=== PATIENT | female | born 1930 | race Caucasian/White ===

== ENCOUNTER 2017-01-01 16:02 | Observation (INO) | payer MEDICARE ==
[2017-01-01 16:15] LABS: Lactic Acid 1.2 (0.4-2.0); VBG BASE EXCESS 4.3 (-2.0-2.0); VBG CARBOXYHEMOGLOBIN 1.9 % T HGB (0.0-6.9); VBG HCO3- 30.3 meq/L (22-28); VBG HEMOGLOBIN 12.4; VBG O2 SATURATION 54.1 (95-100); VBG POTASSIUM 4.3 (3.5-5.1); VBG pH 7.39 (7.32-7.42)
[2017-01-01 16:20] LABS: BASOPHIL % 0.3 % (0.0-0.4); Eosinophil % 0.8 % (0.00-5.0); Granulocytes % 69.3 % (36.0-66.0); Lymphocytes % 21.7 % (24.0-44.0); Mean Cell Volume 86.7 fl (78-100); Mean Corpuscular Hemoglobin 28.8 pg (26-32); Mean Platelet Volume 9.7 fl (6-9.5); Monocytes % 7.9 % (0.0-12.0); Platelet Count 338 K/mm3 (150-450); Red Cell Distribution Width 14.2 % (11.5-14.0); White Blood Count 11.9 K/mm3 (4.0-10.5)
--- NOTE | 2017-01-01 16:33 | XRAY ---
Indication: Short of breath. Comparison: April 15, 2015. Portable chest again hyperinflated with cardiomegaly. There is slight increasing vascular prominence with new interstitial edema and bibasilar effusions favoring cardiac decompensation. There is again note of previous CABG surgery and mitral valve calcifications. Bony thorax intact again with osteopenia and degenerative changes. Impression: Cardiomegaly with new vascular prominence, interstitial edema, and bibasilar effusions favoring cardiac decompensation. Superimposed pneumonia not completely excluded.
[2017-01-01] MEDS ORDERED: Lasix 40 MG/4 ML IV ONE (16:34)
[2017-01-01] MEDS ORDERED: Lasix 40 MG/4 ML ONE (16:40)
--- NOTE | 2017-01-01 16:42 | ERPHSYRPT ---
- History of Present Illness Time Seen by Provider: 01/01/17 16:04 Source: patient, EMS (gave neb, oxygen, NTG) Patient Subjective Stated Complaint: pt arrived per ambulance from home for sob for a couple days worse today, no fever, nonproductive cough, Triage Nursing Assessment: pt alert and oriented, skin w/d pale,sob with conversation, o2 at 2 l nc applied, no edema noted, Physician History: CC: short of air Hx: 86 y/o patient of Dr Islas/Bryson. She has hx of heart disease. She has increasing dyspnea today. Some LAMBERT. No chest pain. Chronic cough. EMS was called for worsened and she had some resp distress on their arrival. She had elevated BP. O2 sat in mid 80s on RA. She improved with oxygen, neb, and NTG. Severity of Dyspnea-Max: severe Severity of Dyspnea-Current: moderate Allergies/Adverse Reactions: Sulfa (Sulfonamide Antibiotics) Allergy (Verified 01/01/17 16:13) Home Medications: Aspirin 325 mg PO BID 04/15/15 [History] Diazepam 10 mg PO QHS 04/15/15 [History] Losartan/Hydrochlorothiazide [Losartan-Hctz 100-12.5 mg Tab] 1 tab PO DAILY [History] Metoprolol Succinate 50 mg [Toprol Xl 50 MG] 50 mg PO BID 04/15/15 [ History] Sandy-3 Fatty Acids [Fish Oil] 1,200 mg PO DAILY 04/15/15 [History] Hydrochlorothiazide 12.5 mg DAILY 01/01/17 [History] Hx Tetanus, Diphtheria Vaccination/Date Given: No Hx Influenza Vaccination/Date Given: Yes Hx Pneumococcal Vaccination/Date Given: Yes Immunizations Up to Date: Yes - Review of Systems Constitutional: Fatigue, Malaise, Weakness, No Fever, No Chills Eyes: No Symptoms Ears, Nose, & Throat: No Symptoms Respiratory: Cough (chronic), Dyspnea, Dyspnea on Exertion (LAMBERT) Cardiac: Edema, No Chest Pain Abdominal/Gastrointestinal: No Nausea, No Vomiting All Other Systems: Reviewed and Negative - Past Medical History Pertinent Past Medical History: Yes Cardiac History: Congenital Heart Disease, Congestive Heart Failure, High Cholesterol, Hypertension, Other Respiratory History: CHF - Past Surgical History Past Surgical History: Yes Female Surgical History: Lumpectomy - Social History Smoking Status: Never smoker Exposure to second hand smoke: Yes Drug Use: none Patient Lives Alone: No - Female History Hx Last Menstrual Period: post - Nursing Vital Signs Nursing Vital Signs: Initial Vital Signs Temperature Source Oral Pulse Rate 99 Respiratory Rate 26 Blood Pressure [] 159/85 Pain Intensity 0 - Physical Exam General Appearance: alert Eye Exam: PERRL/EOMI Neck Exam: normal inspection, non-tender, supple Respiratory Exam: crackles/rales (bilateral) Cardiovascular/Chest Exam: regular rate/rhythm, murmur Abdominal/Gastrointestinal Exam: soft, No tenderness, No distention, No mass, No guarding Extremity Exam: non-tender, no calf tenderness, pedal edema Neurologic Exam: alert, oriented x 3, cooperative, sensation nml, No motor deficits Skin Exam: warm, dry, pale, No rash SpO2 Interpretation: hypoxic SpO2: 88 Oxygen Delivery: Room Air - Course Nursing assessment & vital signs reviewed: Yes EKG Interpreted by Me: RATE (74), Sinus Rhythm, NORMAL AXIS, NORMAL INTERVALS ( QTc 424), Non-specific ST Changes (LVH) - Radiology Exams cxr X-ray Interpretation: Teleradiologist Report (CM, new vascular prominence, interstitial edema, and bibasilar effusions fovring cardiac decompensation.) Ordered Tests: Active Orders 24 hr Category Date Time Status Financial Coach STAT Care 01/01/17 16:05 Active EKG-ER Only STAT Care 01/01/17 16:05 Active IV Insertion STAT Care 01/01/17 16:05 Active Oxygen-ED Only NASAL CANNULA 2 lpm Care 01/01/17 16:05 Active CHEST 1 VIEW (PORTABLE) Stat Exams 01/01/17 16:05 Completed CBC W DIFF Stat Lab 01/01/17 16:18 Completed CMP Stat Lab 01/01/17 16:18 Completed Lactic Acid Urgent Lab 01/01/17 16:13 Completed NT PRO BNP Stat Lab 01/01/17 16:18 Completed TROPONIN Q3H Lab 01/01/17 17:00 Ordered TROPONIN Q3H Lab 01/01/17 20:00 Ordered TROPONIN Q3H Lab 01/01/17 23:00 Ordered TROPONIN Q3H Lab 01/02/17 02:00 Ordered TROPONIN Q3H Lab 01/02/17 05:00 Ordered VENOUS BLOOD GAS Urgent Lab 01/01/17 16:13 Completed Medication Summary Discontinued Medications Generic Name Dose Route Start Last Admin Trade Name Jm PRN Reason Stop Dose Admin Furosemide 40 mg 01/01/17 16:34 01/01/17 16:42 Lasix 40 Mg/4 Ml IV 01/01/17 16:35 40 mg STAT ONE Administration Furosemide Confirm 01/01/17 16:40 Lasix 40 Mg/4 Ml Administered 01/01/17 16:41 Dose 40 mg .ROUTE .STK-MED ONE Lab/Rad Data: Laboratory Result Diagrams 01/01/17 16:18 01/01/17 16:18 Laboratory Results 01/01/17 01/01/17 01/01/17 Range/Units 16:18 16:18 16:13 WBC 11.9 H (4.0-10.5) K/mm3 RBC 4.20 (4.1-5.4) M/mm3 Hgb 12.1 (12.0-16.0) gm/dl Hct 36.4 (35-47) % MCV 86.7 (78-100) fl MCH 28.8 (26-32) pg MCHC 33.2 (32-36) g/dl RDW 14.2 H (11.5-14.0) % Plt Count 338 (150-450) K/mm3 MPV 9.7 H (6-9.5) fl Gran % 69.3 H (36.0-66.0) % Lymphocytes % 21.7 L (24.0-44.0) % Monocytes % 7.9 (0.0-12.0) % Eosinophils % 0.8 (0.00-5.0) % Basophils % 0.3 (0.0-0.4) % Basophils # 0.03 (0-0.4) VBG pH 7.39 (7.32-7.42) VBG pCO2 at Pat Temp 50 (42-55) mm/Hg VBG pO2 at Pat Temp 26 (25-40) mm/Hg VBG HCO3 30.3 H* (22-28) meq/L VBG O2 Sat (Jose) 54.1 L (95-100) VBG Base Excess 4.3 H (-2.0-2.0) VBG Hemoglobin 12.4 VBG Carboxyhemoglobin 1.9 (0.0-6.9) % T HGB POC Potassium 4.3 (3.5-5.1) Sodium 129 L (136-145) mEq/L Potassium 4.0 (3.5-5.1) mEq/L Chloride 92 L (98-107) mEq/L Carbon Dioxide 28.3 (21-32) mEq/L Anion Gap 12.8 (5-15) MEQ/L BUN 15 (9-20) mg/dL Creatinine 0.89 (0.55-1.30) mg/dl Estimated GFR > 60 ML/MIN Glucose 149 H (70-110) MG/DL Lactic Acid 1.2 (0.4-2.0) Calcium 9.6 (8.5-10.1) mg/dL Total Bilirubin 0.4 (0.2-1.0) mg/dL AST 23 (15-37) U/L ALT 19 (12-78) U/L Alkaline Phosphatase 66 (46-116) U/L NT-Pro-B Natriuret Pep 6836 H (0-450) pg/ml Serum Total Protein 7.8 (6.4-8.2) gm/dL Albumin 4.1 (3.4-5.0) g/dL - Progress Progress Note: 01/01/17 17:02 Pt desires no CPR. [facility] paperwork to be signed. Advised hospitalization for CHF. Paged Dr Islas. Troponin pending. 01/01/17 17:06 Pt already took ASA at home today. Spoke to Dr Islas. Will place in Tele observation for lasix, NTG paste, O2. Discussed with : Bailee Will see patient in: hospital (observation) Counseled pt/family regarding: lab results, diagnosis, need for follow-up, rad results - Departure Time of Disposition: 17:06 Departure Disposition: Observation (Tele) Clinical Impression: Shortness of breath, Hyponatremia, Hx of aortic valve insufficiency CHF (congestive heart failure) Qualifiers: Congestive heart failure type: systolic Congestive heart failure chronicity: acute Qualified Code(s): I50.21 - Acute systolic (congestive) heart failure Condition: Fair Critical Care Time: No Referrals: KAYLA ISALS MD [Primary Care Provider] -
[2017-01-01 16:47] LABS: ALBUMIN 4.1 g/dL (3.4-5.0); ALKALINE PHOSPHATASE 66 U/L (46-116); ANION GAP 12.8 MEQ/L (5-15); BILIRUBIN,TOTAL 0.4 mg/dL (0.2-1.0); BLOOD UREA NITROGEN 15 mg/dL (9-20); CHLORIDE 92 mEq/L (98-107); Carbon Dioxide 28.3 mEq/L (21-32); Glucose 149 MG/DL (70-110); SGOT/AST 23 U/L (15-37); SGPT/ALT 19 U/L (12-78); SODIUM 129 mEq/L (136-145); Total Protein 7.8 gm/dL (6.4-8.2)
[2017-01-01] MEDS: Lopressor 50 MG PO SCH (22:28)
[2017-01-01] MEDS: Cozaar 50 MG PO SCH (22:28)
[2017-01-01] MEDS: NITRO-BID 2% UD PACKETS TOP SCH (22:28)
[2017-01-01] MEDS: Ecotrin 325 MG PO SCH (22:42)
[2017-01-01] MEDS: NORVASC 5 MG PO SCH (22:43)
[2017-01-01] MEDS: Valium 5 MG PO SCH (22:43)
[2017-01-02] MEDS: NITRO-BID 2% UD PACKETS TOP SCH ×3 (05:14→23:11)
[2017-01-02 06:00] LABS: Mean Cell Volume 85.9 fl (78-100); Mean Platelet Volume 9.8 fl (6-9.5); Platelet Count 325 K/mm3 (150-450); Red Blood Count 4.03 M/mm3 (4.1-5.4); Red Cell Distribution Width 14.3 % (11.5-14.0); White Blood Count 9.2 K/mm3 (4.0-10.5)
[2017-01-02 06:11] LABS: ANION GAP 11.6 MEQ/L (5-15); Carbon Dioxide 30.8 mEq/L (21-32); Potassium 3.6 mEq/L (3.5-5.1)
[2017-01-02 06:24] LABS: Mean Corpuscular Hemoglobin 28.2 pg (26-32)
[2017-01-02] MEDS ORDERED: PREVNAR 13 SYRINGE IM ONE (10:00)
[2017-01-02] MEDS ORDERED: Ecotrin 325 MG PO SCH (10:00)
[2017-01-02] MEDS: Lopressor 50 MG PO SCH ×2 (11:18→22:41)
[2017-01-02] MEDS: Lasix 40 MG/4 ML IV SCH ×2 (11:19→16:41)
[2017-01-02] MEDS: Cozaar 50 MG PO SCH ×2 (11:19→22:41)
--- NOTE | 2017-01-02 12:24 | PCM.SSS ---
History of Present Illness - Chief Complaint Chief Complaint: shortness of breath and chest pain for 1-2 days History of Present Illness: is a 86 year old female.has hx of heart disease. She has increasing dyspnea today. Some LAMBERT. No chest pain. Chronic cough. EMS was called for worsened and she had some resp distress on their arrival. She had elevated BP. O2 sat in mid 80s on RA. She improved with oxygen, neb, and NTG. - Review of Systems Constitutional: No Fever, No Chills Eyes: No Symptoms Ears, Nose, & Throat: No Symptoms Respiratory: Orthopnea, Short Of Breath, No Cough Cardiac: Chest Pain, No Edema, No Syncope Abdominal/Gastrointestinal: No Abdominal Pain, No Nausea, No Vomiting, No Diarrhea Genitourinary Symptoms: No Dysuria Musculoskeletal: No Back Pain, No Neck Pain Skin: No Rash Neurological: No Dizziness, No Focal Weakness, No Sensory Changes Psychological: No Symptoms Endocrine: No Symptoms Hematologic/Lymphatic: No Symptoms Immunological/Allergic: No Symptoms Medications & Allergies Home Medications: Home Medication List Aspirin 325 mg PO BID 04/15/15 [History Confirmed 01/01/17] Diazepam 10 mg PO QHS 04/15/15 [History Confirmed 01/01/17] Stockett-3 Fatty Acids [Fish Oil] 1,200 mg PO DAILY 04/15/15 [History Confirmed 12/15] Amlodipine Besylate 2.5 mg PO HS 01/01/17 [History Confirmed 01/01/17] Hydrochlorothiazide 12.5 mg DAILY 01/01/17 [History Confirmed 01/01/17] Losartan Potassium 50 mg PO BID 01/01/17 [History Confirmed 01/01/17] Metoprolol Tartrate 100 mg PO BID 01/01/17 [History Confirmed 01/01/17] Allergies/Adverse Reactions: Allergies Allergy/AdvReac Type Severity Reaction Status Date / Time Sulfa (Sulfonamide Allergy Verified 01/01/17 17:58 Antibiotics) - Past Medical History Past Medical History: Yes Neurological History: No Pertinent History ENT History: Cataracts Cardiac History: Congestive Heart Failure, High Cholesterol, Hypertension, Other Respiratory History: CHF Endocrine Medical History: No Pertinent History Musculoskelatal History: Arthritis GI Medical History: No Pertinent History History: No Pertinent History Pyscho-Social History: No Pertinent History Reproductive Disorders: Fibroids Comment: anemia - Female History Hx Last Menstrual Period: post Are you now?: No - Past Surgical History Past Surgical History: Yes Neuro Surgical History: No Pertinent History Cardiac History: CABG Respiratory Surgery: No Pertinent History GI Surgical History: No Pertinent History Genitourinary Surgical Hx: No Pertinent History Musculskeletal Surgical Hx: No Pertinent History Female Surgical History: Hysterectomy, Lumpectomy - Social History Smoking Status: Former smoker Exposure to second hand smoke: Yes Alcohol: None Drug Use: none - Physical Exam Vital Signs: Vital Signs - 24 hr Temp Pulse Resp BP Pulse Ox 01/02/17 07:51 98.1 F 69 18 107/54 94 L 01/02/17 04:00 98.2 F 69 16 109/60 98 01/01/17 23:50 97.9 F 78 17 137/63 97 01/01/17 21:00 86 18 96 01/01/17 20:00 98.0 F 85 18 150/68 98 01/01/17 18:27 97.9 F 100 H 20 181/82 94 L 01/01/17 17:21 87 20 155/83 97 01/01/17 17:07 88 L 01/01/17 16:10 26 H 97 01/01/17 16:03 99 H 26 H 159/85 88 L Oxygen-Last 24 hours O2 Percentage 2 Liters = 28% O2 Percentage 2 Liters = 28% O2 Percentage 2 Liters = 28% O2 Percentage 2 Liters = 28% O2 Percentage 2 Liters = 28% O2 Percentage 2 Liters = 28% O2 Percentage 2 Liters = 28% General Appearance: no apparent distress, alert Neurologic Exam: alert, oriented x 3, cooperative, normal mood/affect, nml cerebellar function, nml station & gait, sensation nml, No motor deficits Eye Exam: PERRL/EOMI, eyes nml inspection Ears, Nose, Throat Exam: normal ENT inspection, TMs normal, pharynx normal, moist mucous membranes Neck Exam: normal inspection, non-tender, supple, full range of motion Respiratory Exam: diminished breath sounds, prolonged expirations, crackles/ rales, rhonchi, wheezing, No respiratory distress Cardiovascular Exam: regular rate/rhythm, normal heart sounds, normal peripheral pulses Gastrointestinal/Abdomen Exam: soft, normal bowel sounds, No tenderness, No mass Back Exam: normal inspection, normal range of motion, No CVA tenderness, No vertebral tenderness Extremity Exam: normal inspection, normal range of motion, pelvis stable Skin Exam: normal color, warm, dry, No rash Lymphatic Exam: No adenopathy Results - Labs Lab/Micro Results: Lab Results-Last 24 Hours 01/01/17 01/01/17 01/02/17 Range/Units 20:10 23:05 02:03 WBC (4.0-10.5) K/mm3 RBC (4.1-5.4) M/mm3 Hgb (12.0-16.0) gm/dl Hct (35-47) % MCV (78-100) fl MCH (26-32) pg MCHC (32-36) g/dl RDW (11.5-14.0) % Plt Count (150-450) K/mm3 MPV (6-9.5) fl Sodium (136-145) mEq/L Potassium (3.5-5.1) mEq/L Chloride (98-107) mEq/L Carbon Dioxide (21-32) mEq/L Anion Gap (5-15) MEQ/L BUN (9-20) mg/dL Creatinine (0.55-1.30) mg/dl Estimated GFR ML/MIN Glucose (70-110) MG/DL Calcium (8.5-10.1) mg/dL Troponin I 0.948 H* 1.109 H* 1.375 H* (0.000-0.056) ng/ml NT-Pro-B Natriuret Pep (0-450) pg/ml 01/02/17 01/02/17 01/02/17 Range/Units 05:25 05:25 05:25 WBC 9.2 (4.0-10.5) K/mm3 RBC 4.03 L (4.1-5.4) M/mm3 Hgb 11.4 L (12.0-16.0) gm/dl Hct 34.6 L (35-47) % MCV 85.9 (78-100) fl MCH 28.2 (26-32) pg MCHC 32.9 (32-36) g/dl RDW 14.3 H (11.5-14.0) % Plt Count 325 (150-450) K/mm3 MPV 9.8 H (6-9.5) fl Sodium 132 L (136-145) mEq/L Potassium 3.6 (3.5-5.1) mEq/L Chloride 93 L (98-107) mEq/L Carbon Dioxide 30.8 (21-32) mEq/L Anion Gap 11.6 (5-15) MEQ/L BUN 17 (9-20) mg/dL Creatinine 1.05 (0.55-1.30) mg/dl Estimated GFR 53 ML/MIN Glucose 128 H (70-110) MG/DL Calcium 9.4 (8.5-10.1) mg/dL Troponin I 0.903 H* (0.000-0.056) ng/ml NT-Pro-B Natriuret Pep 05851 H (0-450) pg/ml - Radiology Impressions Radiology Exams & Impressions: Radiology Procedures Category Date Time Status ECHO W/2D AND DOPPLER [US] Routine Exams 01/02/17 08:00 Taken Assessment/Plan (1) Non-ST elevated myocardial infarction Current Visit: Yes Status: Acute Code(s): I21.4 - NON-ST ELEVATION (NSTEMI) MYOCARDIAL INFARCTION (2) CHF (congestive heart failure) Current Visit: Yes Status: Acute Qualifiers: Congestive heart failure type: systolic Congestive heart failure chronicity : acute Qualified Code(s): I50.21 - Acute systolic (congestive) heart failure Code(s): I50.9 - HEART FAILURE, UNSPECIFIED (3) Hx of aortic valve insufficiency Current Visit: Yes Status: Acute Code(s): Z86.79 - PERSONAL HISTORY OF OTHER DISEASES OF THE CIRCULATORY SYSTEM (4) Shortness of breath Current Visit: Yes Status: Acute Code(s): R06.02 - SHORTNESS OF BREATH (5) Chest pain Current Visit: Yes Status: Acute Qualifiers: Chest pain type: chest pain on breathing Qualified Code(s): R07.1 - Chest pain on breathing Code(s): R07.9 - CHEST PAIN, UNSPECIFIED Hospital Summary - Hospital Course Hospital Course: Chief Complaint Diagnosis shortness of breath and chest pain for 1-2 days Allergies Allergy/AdvReac Type Severity Reaction Status Date / Time Sulfa (Sulfonamide Allergy Verified 01/01/17 17:58 Antibiotics) Vital Signs (Last 24 hours) Temp Pulse Resp BP Pulse Ox 01/03/17 03:57 98.2 F 81 25 H 130/62 82 L 01/03/17 00:00 97.7 F 69 19 104/57 97 01/02/17 22:48 75 131/66 01/02/17 19:49 98.1 F 84 20 95/54 94 L 01/02/17 16:00 98.4 F 69 20 110/58 98 01/02/17 12:00 98.3 F 79 20 121/58 96 01/02/17 07:51 98.1 F 69 18 107/54 94 L Home Medications Medication Instructions Recorded Confirmed Last Taken Type Amlodipine Besylate 2.5 mg PO HS 01/01/17 01/01/17 12/31/16 21:00 History Hydrochlorothiazide 12.5 mg DAILY 01/01/17 01/01/17 01/01/17 History Losartan Potassium 50 mg PO BID 01/01/17 01/01/17 01/01/17 09:00 History Metoprolol Tartrate 100 mg PO BID 01/01/17 01/01/17 01/01/17 09:00 History Current Medications Generic Name Dose Route Start Last Admin Trade Name Jm PRN Reason Stop Dose Admin Amlodipine Besylate 2.5 mg 01/01/17 22:00 01/02/17 22:42 Norvasc 5 Mg PO 01/31/17 21:59 2.5 mg HS MARCELLUS Administration Aspirin 325 mg 01/01/17 22:00 01/02/17 22:42 Ecotrin 325 Mg PO 01/31/17 21:59 325 mg BID MARCELLUS Administration Diazepam 10 mg 01/01/17 22:00 01/02/17 22:42 Valium 5 Mg PO 01/31/17 21:59 10 mg QHS MARCELLUS Administration Furosemide 40 mg 01/02/17 10:00 01/02/17 16:41 Lasix 40 Mg/4 Ml IV 02/01/17 09:59 40 mg BID DIURETIC MARCELLUS Administration Losartan Potassium 50 mg 01/01/17 22:00 01/02/17 22:41 Cozaar 50 Mg PO 01/31/17 21:59 50 mg BID MARCELLUS Administration Metoprolol Tartrate 100 mg 01/01/17 22:00 01/02/17 22:41 Lopressor 50 Mg PO 01/31/17 21:59 100 mg BID MARCELLUS Administration Nitroglycerin 0.5 gm 01/01/17 22:00 01/03/17 06:54 Nitro-Bid 2% Ud Packets TOP 01/31/17 21:59 Not Given Q8HT MARCELLUS Discontinued Medications Generic Name Dose Route Start Last Admin Trade Name Jm PRN Reason Stop Dose Admin Aspirin 325 mg 01/02/17 10:00 Ecotrin 325 Mg PO 02/01/17 09:59 QAM MARCELLUS Furosemide 40 mg 01/01/17 16:34 01/01/17 16:42 Lasix 40 Mg/4 Ml IV 01/01/17 16:35 40 mg STAT ONE Administration Furosemide Confirm 01/01/17 16:40 Lasix 40 Mg/4 Ml Administered 01/01/17 16:41 Dose 40 mg .ROUTE .STK-MED ONE Pneumococcal 13-Valent Conj Vacc 0.5 ml 01/02/17 10:00 01/02/17 11:20 Prevnar 13 Syringe IM 01/02/17 10:01 0.5 ml .ONCE ONE Administration Intake & Output (Last 24 hours) 12/31/16 01/01/17 01/02/17 01/03/17 11:59 11:59 11:59 11:59 Intake Total 100 680 Output Total 900 650 Balance -800 30 Weight 64.864 kg Laboratory Results (Last 24 hours) 01/03/17 05:20 NT-Pro-B Natriuret Pep 7560 H Orders (Last 24 hours) Category Date Time Status ECHO W/2D AND DOPPLER [US] Routine Exams 01/02/17 08:00 Taken BNP [NT PRO BNP] Routine Lab 01/03/17 05:20 Completed Aspirin EC 325 mg [Ecotrin 325 MG] Med 01/02/17 10:00 Discontinued 325 mg PO QAM Furosemide 40 mg/4 ml [Lasix 40 MG/4 ML] Med 01/02/17 10:00 Active 40 mg IV BID DIURETIC Pneumoc 13-Elisha Conj-Dip Crm/Pf [Prevnar 13 Syringe] Med 01/02/17 10:00 Discontinued 0.5 ml IM .ONCE ONE - Vitals & Intake/Output Vital Signs: Vital Signs Temperature 98.1 F 01/02/17 07:51 Pulse Rate 69 01/02/17 07:51 Respiratory Rate 18 01/02/17 07:51 Blood Pressure 107/54 01/02/17 07:51 O2 Sat by Pulse Oximetry 94 L 01/02/17 07:51 Oxygen-Last Documented O2 Percentage 2 Liters = 28% Intake & Output: Intake & Output 12/31/16 01/01/17 01/02/17 01/03/17 11:59 11:59 11:59 11:59 Intake Total 100 Output Total 900 Balance -800 Weight 64.864 kg - Lab Result Diagrams: 01/02/17 05:25 01/02/17 05:25 Lab Results-Last 24 Hrs: Lab Results-Last 24 Hours 01/01/17 01/01/17 01/02/17 Range/Units 20:10 23:05 02:03 WBC (4.0-10.5) K/mm3 RBC (4.1-5.4) M/mm3 Hgb (12.0-16.0) gm/dl Hct (35-47) % MCV (78-100) fl MCH (26-32) pg MCHC (32-36) g/dl RDW (11.5-14.0) % Plt Count (150-450) K/mm3 MPV (6-9.5) fl Sodium (136-145) mEq/L Potassium (3.5-5.1) mEq/L Chloride (98-107) mEq/L Carbon Dioxide (21-32) mEq/L Anion Gap (5-15) MEQ/L BUN (9-20) mg/dL Creatinine (0.55-1.30) mg/dl Estimated GFR ML/MIN Glucose (70-110) MG/DL Calcium (8.5-10.1) mg/dL Troponin I 0.948 H* 1.109 H* 1.375 H* (0.000-0.056) ng/ml NT-Pro-B Natriuret Pep (0-450) pg/ml 01/02/17 01/02/17 01/02/17 Range/Units 05:25 05:25 05:25 WBC 9.2 (4.0-10.5) K/mm3 RBC 4.03 L (4.1-5.4) M/mm3 Hgb 11.4 L (12.0-16.0) gm/dl Hct 34.6 L (35-47) % MCV 85.9 (78-100) fl MCH 28.2 (26-32) pg MCHC 32.9 (32-36) g/dl RDW 14.3 H (11.5-14.0) % Plt Count 325 (150-450) K/mm3 MPV 9.8 H (6-9.5) fl Sodium 132 L (136-145) mEq/L Potassium 3.6 (3.5-5.1) mEq/L Chloride 93 L (98-107) mEq/L Carbon Dioxide 30.8 (21-32) mEq/L Anion Gap 11.6 (5-15) MEQ/L BUN 17 (9-20) mg/dL Creatinine 1.05 (0.55-1.30) mg/dl Estimated GFR 53 ML/MIN Glucose 128 H (70-110) MG/DL Calcium 9.4 (8.5-10.1) mg/dL Troponin I 0.903 H* (0.000-0.056) ng/ml NT-Pro-B Natriuret Pep 75516 H (0-450) pg/ml - Radiology Exams Ordered Rad Exams-Entire Visit: Radiology Procedures Category Date Time Status ECHO W/2D AND DOPPLER [US] Routine Exams 01/02/17 08:00 Taken - Discharge Discharge Date: 01/03/17 Disposition: Home, Self-Care Condition: Stable Prescriptions: Continue Diazepam 10 mg PO QHS Stockett-3 Fatty Acids [Fish Oil] 1,200 mg PO DAILY Aspirin 325 mg PO BID Hydrochlorothiazide 12.5 mg DAILY Amlodipine Besylate 2.5 mg PO HS Metoprolol Tartrate 100 mg PO BID Losartan Potassium 50 mg PO BID Follow up with: KAYLA ISLAS MD [Primary Care Provider] - 1 Week Forms: Patient Portal Information
[2017-01-02] MEDS: Ecotrin 325 MG PO SCH ×2 (14:32→22:42)
[2017-01-02] MEDS: Valium 5 MG PO SCH (22:42)
[2017-01-02] MEDS: NORVASC 5 MG PO SCH (22:42)
[2017-01-03] MEDS: NITRO-BID 2% UD PACKETS TOP SCH (06:54)
[2017-01-03 08:00] VITALS: BP 131/60; PULSE 70; O2SAT 94
--- NOTE | 2017-01-07 12:42 | ECHO ---
Transthoracic echocardiographic examination and color Doppler was done on 01/02/2017. INDICATION: Hypertension, hyperlipidemia, shortness of breath. IMPRESSION: 1) MILD LEFT VENTRICULAR HYPOKINESIA. EJECTION FRACTION OF AROUND 40%. 2) AORTIC VALVE SCLEROSIS. 3) MODERATE AORTIC REGURGITATION. 4) MILD TRICUSPID REGURGITATION. RIGHT VENTRICULAR SYSTOLIC PRESSURE OF 27 MM OF MERCURY. 5) MILD MITRAL REGURGITATION. 6) TRACE PULMONIC INSUFFICIENCY. 7) LEFT ATRIAL ENLARGEMENT. 8) LEFT VENTRICULAR HYPERTROPHY. 9) LEFT VENTRICULAR DIASTOLIC DYSFUNCTION. The left ventricle is visualized and demonstrated mild global left ventricular hypokinesia. Ejection fraction around 40%. There is moderate left ventricular hypertrophy. The mitral valve is seen and this opens adequately. There is mild mitral regurgitation. Left atrium is enlarged. Tissue Doppler study of the lateral mitral annulus suggestive of left ventricular diastolic dysfunction. The aortic valve is calcified with some limitation of the opening. There is no significant gradient across the aortic valve. There is moderate aortic regurgitation. Right side chambers are normal. There is mild tricuspid regurgitation. Right ventricular systolic pressure of 27 mm of Mercury. There is also trace pulmonic insufficiency. Suggest additional interrogation of the aortic valve.
== END 2017-01-03 09:00 | disposition home or self-care (01) ==
LOC: ED 16:02 → MED SURG 17:54
PROVIDERS: ADMIT General Practice; ATTEND General Practice
DX: I21.4 Non-ST elevation (NSTEMI) myocardial infarction (principal); I50.21 Acute systolic (congestive) heart failure; I10 Essential (primary) hypertension; M19.90 Unspecified osteoarthritis, unspecified site; E78.00 Pure hypercholesterolemia, unspecified; Z86.79 Personal history of other diseases of the circulatory system; Z95.1 Presence of aortocoronary bypass graft
CPT/HCPCS: 36415; 71010; 80048; 80053; 82805; 83605; 83880; 84484; 85025; 85027; 90670; 93005; 93041; 93268; 93306; 94760; 96374; 99285; G0009; G0378; J1940; A9270-GY

== ENCOUNTER 2017-05-16 08:37 | Inpatient (IN) | payer MEDICARE ==
[2017-05-16] MEDS ORDERED: Hydromorphone 1 mg/ml Ampule IV ONE (08:48)
--- NOTE | 2017-05-16 08:57 | ERPHSYRPT ---
- History of Present Illness Time Seen by Provider: 05/16/17 08:58 Patient Subjective Stated Complaint: shoulder pain and back pain keeps trying to rub her back which causes her shoulders to hurt worse Triage Nursing Assessment: pt alert and oriented x3, left eye swollen underneath , lung sounds clear anterior and posterior throughout, some congestion when she talks noted in back of throat, difficulty clearing secretions pulses equal bialteral radius, handgrips equal bialteral able to lift arms and fully rotate shoulders. skin clean white nad intact bowel sounds present x4. mild edema lower extremities left sild is slightly more swollen than right, pedal pulses present bilaterally. Physician History: shoulder pain and back pain keeps trying to rub her back which causes her shoulders to hurt worse, c/o weakness, shortness of breath Timing/Duration: day(s) Modifying Factors: Improves With: medication Associated Symptoms: weakness Allergies/Adverse Reactions: Sulfa (Sulfonamide Antibiotics) Allergy (Verified 01/01/17 17:58) rash Home Medications: Aspirin 325 mg PO BID 04/15/15 [History] Diazepam 10 mg PO QHS 04/15/15 [History] [place]-3 Fatty Acids [Fish Oil] 1,200 mg PO DAILY 04/15/15 [History] Amlodipine Besylate 2.5 mg PO HS 01/01/17 [History] Hydrochlorothiazide 12.5 mg DAILY 01/01/17 [History] Losartan Potassium 50 mg PO BID 01/01/17 [History] Metoprolol Tartrate 100 mg PO BID 01/01/17 [History] Hx Tetanus, Diphtheria Vaccination/Date Given: Yes Hx Influenza Vaccination/Date Given: No Hx Pneumococcal Vaccination/Date Given: Yes Immunizations Up to Date: Yes - Review of Systems Constitutional: Lethargy, Weakness, No Fever, No Chills Eyes: No Symptoms Ears, Nose, & Throat: No Symptoms Respiratory: Dyspnea, Dyspnea on Exertion (LAMBERT), No Cough, No Wheezing Cardiac: No Chest Pain, No Edema, No Syncope Abdominal/Gastrointestinal: No Abdominal Pain, No Nausea, No Vomiting, No Diarrhea Genitourinary Symptoms: No Dysuria Musculoskeletal: Back Pain (mid thoracic back pain), No Neck Pain Skin: No Rash Neurological: No Dizziness, No Focal Weakness, No Sensory Changes Psychological: No Symptoms Endocrine: No Symptoms All Other Systems: Reviewed and Negative - Past Medical History Pertinent Past Medical History: Yes Neurological History: No Pertinent History ENT History: Cataracts Cardiac History: Congestive Heart Failure, High Cholesterol, Hypertension, Other Respiratory History: CHF Endocrine Medical History: No Pertinent History Musculoskeletal History: Arthritis GI Medical History: No Pertinent History History: No Pertinent History Psycho-Social History: No Pertinent History Female Reproductive Disorders: Fibroids Other Medical History: anemia - Past Surgical History Past Surgical History: Yes Neuro Surgical History: No Pertinent History Cardiac: CABG Respiratory: No Pertinent History Gastrointestinal: No Pertinent History Genitourinary: No Pertinent History Musculoskeletal: No Pertinent History Female Surgical History: Hysterectomy, Lumpectomy - Social History Smoking Status: Never smoker Exposure to second hand smoke: No Drug Use: none Patient Lives Alone: No - Nursing Vital Signs Nursing Vital Signs: Initial Vital Signs Temperature 97.8 F 05/16/17 08:38 Pulse Rate 69 05/16/17 08:38 Respiratory Rate 20 05/16/17 08:38 Blood Pressure 159/81 05/16/17 08:38 O2 Sat by Pulse Oximetry 95 05/16/17 08:38 Pain Scale Pain Intensity 2 - Physical Exam General Appearance: mild distress, alert, lethargy Eye Exam: PERRL/EOMI, eyes nml inspection Ears, Nose, Throat Exam: normal ENT inspection, TMs normal, pharynx normal, moist mucous membranes Neck Exam: normal inspection, non-tender, supple, full range of motion Respiratory Exam: lungs clear, diminished breath sounds, No respiratory distress Cardiovascular Exam: murmur, irregular, capillary refill 2-3 sec, edema Gastrointestinal/Abdomen Exam: soft, normal bowel sounds, No tenderness, No mass Back Exam: normal inspection, normal range of motion, muscle spasm (right upper shoulder), No CVA tenderness, No vertebral tenderness Extremity Exam: normal inspection, normal range of motion, pelvis stable Neurologic Exam: alert, oriented x 3, cooperative, normal mood/affect, nml cerebellar function, nml station & gait, sensation nml, No motor deficits Skin Exam: normal color, warm, dry, No rash Lymphatic Exam: No adenopathy SpO2: 95 Oxygen Delivery: Room Air - Course Nursing assessment & vital signs reviewed: Yes EKG Interpreted by Me: Right [place] Deviation, Non-specific ST Changes Ordered Tests: Active Orders 24 hr Category Date Time Status Book Shelver STAT Care 05/16/17 08:51 Active EKG-ER Only STAT Care 05/16/17 08:48 Active CHEST 2 VIEWS (PA AND LAT) Stat Exams 05/16/17 08:51 Taken CBC W DIFF Stat Lab 05/16/17 09:15 Completed CMP Stat Lab 05/16/17 09:15 Completed Lactic Acid Stat Lab 05/16/17 Completed NT PRO BNP Stat Lab 05/16/17 09:15 Completed TROPONIN Q3H Lab 05/16/17 09:15 Completed TROPONIN Q3H Lab 05/16/17 12:00 Ordered TROPONIN Q3H Lab 05/16/17 15:00 Ordered TROPONIN Q3H Lab 05/16/17 18:00 Ordered TROPONIN Q3H Lab 05/16/17 21:00 Ordered UA W/RFX UR CULTURE Stat Lab 05/16/17 08:50 Ordered Medication Summary Generic Name Dose Route Start Last Admin Trade Name Freq PRN Reason Stop Dose Admin Sodium Chloride 1,000 mls @ 50 mls/hr 05/16/17 09:00 05/16/17 09:09 Sodium Chloride 0.9% 1000 Ml IV 06/15/17 08:59 50 mls/hr .Q20H MARCELLUS Administration Discontinued Medications Generic Name Dose Route Start Last Admin Trade Name Freq PRN Reason Stop Dose Admin Hydromorphone HCl 0.5 mg 05/16/17 08:48 Hydromorphone 1 Mg/Ml Ampule IV 05/16/17 08:49 STAT ONE Lab/Rad Data: Laboratory Result Diagrams 05/16/17 09:15 05/16/17 09:15 Laboratory Results 05/16/17 05/16/17 05/16/17 Range/Units Unknown 09:15 09:15 WBC (4.0-10.5) K/mm3 RBC (4.1-5.4) M/mm3 Hgb (12.0-16.0) gm/dl Hct (35-47) % MCV (78-100) fl MCH (26-32) pg MCHC (32-36) g/dl RDW (11.5-14.0) % Plt Count (150-450) K/mm3 MPV (6-9.5) fl Gran % (36.0-66.0) % Lymphocytes % (24.0-44.0) % Monocytes % (0.0-12.0) % Eosinophils % (0.00-5.0) % Basophils % (0.0-0.4) % Basophils # (0-0.4) Sodium 126 L (136-145) mEq/L Potassium 3.7 (3.5-5.1) mEq/L Chloride 88 L (98-107) mEq/L Carbon Dioxide 28.5 (21-32) mEq/L Anion Gap 13.6 (5-15) MEQ/L BUN 12 (9-20) mg/dL Creatinine 0.87 (0.55-1.30) mg/dl Estimated GFR > 60 ML/MIN Glucose 112 H (70-110) MG/DL Lactic Acid 1.6 (0.4-2.0) Calcium 9.5 (8.5-10.1) mg/dL Total Bilirubin 0.50 (0.2-1.0) mg/dL AST 29 (15-37) U/L ALT 59 (12-78) U/L Alkaline Phosphatase 93 (46-116) U/L Troponin I 0.031 (0.000-0.056) ng/ml NT-Pro-B Natriuret Pep 23102 H (0-450) pg/ml Serum Total Protein 7.0 (6.4-8.2) gm/dL Albumin 4.0 (3.4-5.0) g/dL 17 Range/Units 09:15 WBC 7.1 (4.0-10.5) K/mm3 RBC 4.45 (4.1-5.4) M/mm3 Hgb 12.5 (12.0-16.0) gm/dl Hct 37.2 (35-47) % MCV 83.6 (78-100) fl MCH 28.1 (26-32) pg MCHC 33.6 (32-36) g/dl RDW 15.1 H (11.5-14.0) % Plt Count 281 (150-450) K/mm3 MPV 9.8 H (6-9.5) fl Gran % 60.0 (36.0-66.0) % Lymphocytes % 25.2 (24.0-44.0) % Monocytes % 13.2 H (0.0-12.0) % Eosinophils % 1.3 (0.00-5.0) % Basophils % 0.3 (0.0-0.4) % Basophils # 0.02 (0-0.4) Sodium (136-145) mEq/L Potassium (3.5-5.1) mEq/L Chloride (98-107) mEq/L Carbon Dioxide (21-32) mEq/L Anion Gap (5-15) MEQ/L BUN (9-20) mg/dL Creatinine (0.55-1.30) mg/dl Estimated GFR ML/MIN Glucose (70-110) MG/DL Lactic Acid (0.4-2.0) Calcium (8.5-10.1) mg/dL Total Bilirubin (0.2-1.0) mg/dL AST (15-37) U/L ALT (12-78) U/L Alkaline Phosphatase (46-116) U/L Troponin I (0.000-0.056) ng/ml NT-Pro-B Natriuret Pep (0-450) pg/ml Serum Total Protein (6.4-8.2) gm/dL Albumin (3.4-5.0) g/dL - Progress Progress: unchanged Discussed with : Bailee Will see patient in: hospital (observation) Counseled pt/family regarding: lab results, diagnosis, need for follow-up, rad results - Departure Time of Disposition: 09:58 Departure Disposition: Observation Clinical Impression: Hx of aortic valve insufficiency, Hyponatremia Acute exacerbation of CHF (congestive heart failure) Qualifiers: Congestive heart failure type: combined Qualified Code(s): I50.43 - Acute on chronic combined systolic (congestive) and diastolic (congestive) heart failure Condition: Fair Critical Care Time: Yes Critical Care Time(excluding separately billable procedures): 30-74 minutes Referrals: KAYLA ISLAS MD [Primary Care Provider] - Instructions: Heart Failure
[2017-05-16] MEDS ORDERED: Sodium Chloride 0.9% 1000 ML 1,000 ML ONE (09:00)
[2017-05-16] MEDS ORDERED: Sodium Chloride 0.9% 1000 ML 1,000 ML IV SCH (09:00)
[2017-05-16 09:26] LABS: BASOPHIL % 0.3 % (0.0-0.4); Eosinophil % 1.3 % (0.00-5.0); Lymphocytes % 25.2 % (24.0-44.0); Mean Cell Volume 83.6 fl (78-100); Mean Corpuscular Hemoglobin 28.1 pg (26-32); Mean Platelet Volume 9.8 fl (6-9.5); Monocytes % 13.2 % (0.0-12.0); Platelet Count 281 K/mm3 (150-450); Red Blood Count 4.45 M/mm3 (4.1-5.4); Red Cell Distribution Width 15.1 % (11.5-14.0); White Blood Count 7.1 K/mm3 (4.0-10.5)
[2017-05-16 09:53] LABS: ALKALINE PHOSPHATASE 93 U/L (46-116); ANION GAP 13.6 MEQ/L (5-15); BLOOD UREA NITROGEN 12 mg/dL (9-20); CHLORIDE 88 mEq/L (98-107); Carbon Dioxide 28.5 mEq/L (21-32); Glucose 112 MG/DL (70-110); Potassium 3.7 mEq/L (3.5-5.1); SGOT/AST 29 U/L (15-37); SGPT/ALT 59 U/L (12-78); SODIUM 126 mEq/L (136-145)
[2017-05-16] MEDS ORDERED: Nitrostat 0.4 MG Tablet SL PRN (10:29)
[2017-05-16] MEDS ORDERED: FATTY ACIDS PO SCH (10:29)
[2017-05-16] MEDS ORDERED: OMEGA PO SCH (10:29)
[2017-05-16] MEDS ORDERED: NON-FORMULARY ITEM (Metoprolol Tartrate [Metoprolol Tartrate] 100 MG) PO SCH (10:29)
[2017-05-16] MEDS: hydroDIURIL 25 MG PO SCH (13:15)
[2017-05-16] MEDS: Lopressor 50 MG PO SCH ×2 (13:16→22:47)
[2017-05-16] MEDS: Ecotrin 325 MG PO SCH ×2 (13:17→22:45)
[2017-05-16] MEDS: FISH OIL 1,000 MG CAPSULE PO SCH (13:18)
[2017-05-16] MEDS: Cozaar 50 MG PO SCH ×2 (13:18→22:47)
--- NOTE | 2017-05-16 18:23 | PCM.HP ---
History of Present Illness - Chief Complaint Chief Complaint: shortness of breath and mid back pain for 1 day History of Present Illness: is a 87 year old female came to ER with c/o mid back pain and shortness of breath for 1 day, denies any fever or chills, Pain radiate to right shoulder - Review of Systems Constitutional: No Fever, No Chills Eyes: No Symptoms Ears, Nose, & Throat: No Symptoms Respiratory: Orthopnea, Short Of Breath, No Cough, No Wheezing Cardiac: Chest Pain, Edema, Orthopnea, PND, No Syncope Abdominal/Gastrointestinal: No Abdominal Pain, No Nausea, No Vomiting, No Diarrhea Genitourinary Symptoms: No Dysuria Musculoskeletal: No Back Pain, No Neck Pain Skin: No Rash Neurological: No Dizziness, No Focal Weakness, No Sensory Changes Psychological: No Symptoms Endocrine: No Symptoms Hematologic/Lymphatic: No Symptoms Immunological/Allergic: No Symptoms Medications & Allergies Home Medications: Home Medication List Aspirin 325 mg PO BID 04/15/15 [History Confirmed 05/17/17] Diazepam 10 mg PO QHS 04/15/15 [History Confirmed 05/17/17] [employer]-3 Fatty Acids [Fish Oil] 1,200 mg PO DAILY 04/15/15 [History Confirmed ] Amlodipine Besylate 2.5 mg PO HS 01/01/17 [History Confirmed 05/17/17] Hydrochlorothiazide 12.5 mg DAILY 01/01/17 [History Confirmed 05/17/17] Losartan Potassium 50 mg PO BID 01/01/17 [History Confirmed 05/17/17] Metoprolol Tartrate 100 mg PO BID 01/01/17 [History Confirmed 05/17/17] Nitroglycerin 0.4 mg Tablet [Nitrostat 0.4 MG Tablet] 0.4 mg SL Q5MIN PRN MR X 3 PRN #1 bottle 01/03/17 [Rx Confirmed 05/17/17] Allergies/Adverse Reactions: Allergies Allergy/AdvReac Type Severity Reaction Status Date / Time Sulfa (Sulfonamide Allergy Verified 01/01/17 17:58 Antibiotics) - Past Medical History Past Medical History: Yes Neurological History: No Pertinent History ENT History: Cataracts Cardiac History: Congestive Heart Failure, High Cholesterol, Hypertension, Other Respiratory History: CHF Endocrine Medical History: No Pertinent History Musculoskelatal History: Arthritis GI Medical History: No Pertinent History History: No Pertinent History Pyscho-Social History: No Pertinent History Reproductive Disorders: Fibroids Comment: anemia - Female History Are you now?: No - Past Surgical History Past Surgical History: Yes Neuro Surgical History: No Pertinent History Cardiac History: CABG Respiratory Surgery: No Pertinent History GI Surgical History: No Pertinent History Genitourinary Surgical Hx: No Pertinent History Musculskeletal Surgical Hx: No Pertinent History Female Surgical History: Hysterectomy, Lumpectomy - Social History Smoking Status: Never smoker Exposure to second hand smoke: No Alcohol: None Drug Use: none - Physical Exam Vital Signs: Vital Signs - 24 hr Temp Pulse Resp BP Pulse Ox 05/16/17 16:00 97.6 F 59 L 16 120/63 94 L 05/16/17 11:48 72 16 89 L 05/16/17 10:42 97.7 F 62 16 138/67 93 L 05/16/17 10:29 92 L 05/16/17 10:20 97.7 F 62 16 138/67 93 L 05/16/17 09:59 95 05/16/17 09:50 97.7 F 62 16 138/67 93 L 05/16/17 09:28 71 18 137/70 95 05/16/17 08:38 97.8 F 69 20 159/81 95 Oxygen-Last 24 hours O2 Percentage 2 Liters = 28% General Appearance: no apparent distress, alert Neurologic Exam: alert, oriented x 3, cooperative, normal mood/affect, nml cerebellar function, nml station & gait, sensation nml, No motor deficits Eye Exam: PERRL/EOMI, eyes nml inspection Ears, Nose, Throat Exam: normal ENT inspection, TMs normal, pharynx normal, moist mucous membranes Neck Exam: normal inspection, non-tender, supple, full range of motion Respiratory Exam: crackles/rales, rhonchi, wheezing, No respiratory distress Cardiovascular Exam: normal heart sounds, normal peripheral pulses, murmur, tachycardia Gastrointestinal/Abdomen Exam: soft, normal bowel sounds, No tenderness, No mass Back Exam: normal inspection, normal range of motion, No CVA tenderness, No vertebral tenderness Extremity Exam: normal inspection, normal range of motion, pelvis stable Skin Exam: normal color, warm, dry, No rash Lymphatic Exam: No adenopathy Results - Labs Lab/Micro Results: Lab Results-Last 24 Hours 05/16/17 05/16/17 05/16/17 Range/Units 12:00 15:00 Unknown Lactic Acid 1.6 (0.4-2.0) Troponin I 0.035 0.035 (0.000-0.056) ng/ml - Radiology Impressions Radiology Exams & Impressions: PA/lateral chest again demonstrates cardiomegaly with CABG surgery, central vascular prominence, interstitial edema, and bibasilar effusions, left greater than right again favoring cardiac decompensation. Superimposed pneumonia not completely excluded Assessment/Plan (1) Acute exacerbation of CHF (congestive heart failure) Current Visit: Yes Status: Acute Qualifiers: Congestive heart failure type: combined Qualified Code(s): I50.43 - Acute on chronic combined systolic (congestive) and diastolic (congestive) heart failure Assessment & Plan: will follow CHF pathway, continue home meds. Code(s): I50.9 - HEART FAILURE, UNSPECIFIED (2) Hx of aortic valve insufficiency Current Visit: Yes Status: Chronic Assessment & Plan: continue present management Code(s): Z86.79 - PERSONAL HISTORY OF OTHER DISEASES OF THE CIRCULATORY SYSTEM (3) Hyponatremia Current Visit: Yes Status: Acute Assessment & Plan: continue IV fluid normal saline 50 cc/hr Code(s): E87.1 - HYPO-OSMOLALITY AND HYPONATREMIA
[2017-05-16] MEDS: MORPHINE SULFATE 2 MG INJ IV PRN (20:39)
--- NOTE | 2017-05-16 21:57 | XRAY ---
Indication: Right sided and back pain. Comparison: January 01, 2017. PA/lateral chest again demonstrates cardiomegaly with CABG surgery, central vascular prominence, interstitial edema, and bibasilar effusions, left greater than right again favoring cardiac decompensation. Superimposed pneumonia not completely excluded.
[2017-05-16] MEDS ORDERED: DIAZEPAM 10 MG PO SCH (22:00)
[2017-05-16] MEDS ORDERED: NON-FORMULARY ITEM (Amlodipine Besylate [Amlodipine Besylate] 2.5 MG) PO SCH (22:00)
[2017-05-16] MEDS: NORVASC 5 MG PO SCH (22:45)
[2017-05-16] MEDS: Valium 5 MG PO SCH (22:48)
[2017-05-17] MEDS: MORPHINE SULFATE 2 MG INJ IV PRN (04:41)
--- NOTE | 2017-05-17 07:38 | PCM.NOTE ---
Date and Time: 05/17/17 0736 Subjective Assessment: doing better, pain is improving - Review of Systems Constitutional: No Fever, No Chills Eyes: No Symptoms Ears, Nose, & Throat: No Symptoms Respiratory: No Cough, No Short Of Breath Cardiac: No Chest Pain, No Edema, No Syncope Abdominal/Gastrointestinal: No Abdominal Pain, No Nausea, No Vomiting, No Diarrhea Genitourinary Symptoms: No Dysuria Musculoskeletal: Back Pain, No Neck Pain Skin: No Rash Neurological: No Dizziness, No Focal Weakness, No Sensory Changes Psychological: No Symptoms Endocrine: No Symptoms Hematologic/Lymphatic: No Symptoms Immunological/Allergic: No Symptoms Objective Exam General Appearance: no apparent distress, alert Neurologic Exam: alert, oriented x 3, cooperative, normal mood/affect, nml cerebellar function, sensation nml, No motor deficits Skin Exam: normal color, warm, dry Eye Exam: PERRL, EOMI, eyes nml inspection Ears, Nose, Throat Exam: normal ENT inspection, pharynx normal, moist mucous membranes Neck Exam: normal inspection, non-tender, supple, full range of motion Respiratory Exam: crackles/rales, No respiratory distress Cardiovascular Exam: murmur, gallop, irregular, capillary refill 2-3 sec, edema Gastrointestinal/Abdomen Exam: soft, No tenderness, No mass Extremity Exam: normal inspection, normal range of motion Back Exam: normal inspection, normal range of motion, No CVA tenderness, No vertebral tenderness Pelvic Exam: deferred Rectal Exam: deferred OBJECTIVE DATA Vital Signs: Vital Signs - 24 hr Temp Pulse Resp BP Pulse Ox 05/17/17 07:19 97.6 F 60 18 107/57 96 05/17/17 04:00 97.8 F 63 24 133/69 98 05/17/17 00:00 97.4 F 61 21 134/64 97 05/16/17 23:51 97 05/16/17 20:00 97.5 F 66 16 130/88 96 05/16/17 19:47 65 16 98 05/16/17 16:00 97.6 F 59 L 16 120/63 94 L 05/16/17 11:48 72 16 89 L 05/16/17 10:42 97.7 F 62 16 138/67 93 L 05/16/17 10:29 92 L 05/16/17 10:20 97.7 F 62 16 138/67 93 L 05/16/17 09:59 95 05/16/17 09:50 97.7 F 62 16 138/67 93 L 05/16/17 09:28 71 18 137/70 95 05/16/17 08:38 97.8 F 69 20 159/81 95 Oxygen-Last 24 hours O2 Percentage 2 Liters = 28% O2 Percentage 2 Liters = 28% O2 Percentage 2 Liters = 28% Pain Assessment - Last Documented Pain Intensity 0 Pain Scale Used 0-10 Pain Scale Intake and Output: Intake & Output 05/14/17 05/15/17 05/16/17 05/17/17 11:59 11:59 11:59 11:59 Intake Total 1140 Output Total 500 Balance 640 Weight 59.103 kg 59.421 kg Lab Results: Lab Results-Last 24 Hours 05/16/17 05/16/17 05/16/17 Range/Units 12:00 15:00 17:55 Lactic Acid (0.4-2.0) Troponin I 0.035 0.035 0.034 (0.000-0.056) ng/ml 05/16/17 05/16/17 Range/Units 21:05 Unknown Lactic Acid 1.6 (0.4-2.0) Troponin I 0.032 (0.000-0.056) ng/ml Assessment/Plan (1) Acute exacerbation of CHF (congestive heart failure) Current Visit: Yes Status: Acute Qualifiers: Congestive heart failure type: combined Qualified Code(s): I50.43 - Acute on chronic combined systolic (congestive) and diastolic (congestive) heart failure Assessment & Plan: Improving Code(s): I50.9 - HEART FAILURE, UNSPECIFIED (2) Hx of aortic valve insufficiency Current Visit: Yes Status: Chronic Code(s): Z86.79 - PERSONAL HISTORY OF OTHER DISEASES OF THE CIRCULATORY SYSTEM (3) Hyponatremia Current Visit: Yes Status: Acute Assessment & Plan: improving Code(s): E87.1 - HYPO-OSMOLALITY AND HYPONATREMIA
[2017-05-17] MEDS: BUMEX 1 MG PO SCH (10:09)
[2017-05-17] MEDS: Ecotrin 325 MG PO SCH ×2 (10:10→21:30)
[2017-05-17] MEDS: Cozaar 50 MG PO SCH ×2 (10:10→21:30)
[2017-05-17] MEDS: FISH OIL 1,000 MG CAPSULE PO SCH (10:10)
[2017-05-17] MEDS: hydroDIURIL 25 MG PO SCH (10:11)
[2017-05-17] MEDS: Imdur 30 MG PO SCH (10:12)
[2017-05-17] MEDS: Lopressor 50 MG PO SCH ×2 (10:13→21:33)
[2017-05-17 12:02] LABS: Collection Type CCMS; Glucose NEGATIVE (NEGATIVE); Leukocyte Esterase NEGATIVE (NEGATIVE)
[2017-05-17 12:03] LABS: Bilirubin NEGATIVE (NEGATIVE); Blood NEGATIVE Ery/ul (0-5); COMPLETE URINE MICROSCOPIC? YES
[2017-05-17 12:16] LABS: Mucus MODERATE /HPF (NEGATIVE); WBC 0-2 /HPF (0-5)
[2017-05-17 12:17] LABS: Bacteria FEW /HPF (NEGATIVE); Epithelial Cells FEW /HPF (FEW)
[2017-05-17 12:18] LABS: ADD URINE CULTURE? NO (NO)
[2017-05-17] MEDS: NORVASC 5 MG PO SCH (21:30)
[2017-05-17] MEDS: Valium 5 MG PO SCH (21:30)
--- NOTE | 2017-05-18 09:00 | XRAY ---
Indication: CHF. Comparison: May 16, 2017. PA/lateral chest unchanged again demonstrating cardiomegaly, CABG surgery, central vascular prominence, interstitial edema, and bibasilar effusions again left greater than right. No new cardiopulmonary abnormalities.
[2017-05-18] MEDS: FISH OIL 1,000 MG CAPSULE PO SCH (09:26)
[2017-05-18] MEDS: hydroDIURIL 25 MG PO SCH (09:26)
[2017-05-18] MEDS: Lopressor 50 MG PO SCH ×2 (09:26→21:57)
[2017-05-18] MEDS: Ecotrin 325 MG PO SCH ×2 (09:27→21:47)
[2017-05-18] MEDS: Cozaar 50 MG PO SCH ×2 (09:27→21:47)
[2017-05-18] MEDS: BUMEX 1 MG PO SCH (09:27)
[2017-05-18] MEDS: Imdur 30 MG PO SCH (09:27)
[2017-05-18] MEDS ORDERED: DUONEB 0.5-3 MG/3 ml Neb IH ONE (09:36)
--- NOTE | 2017-05-18 12:23 | PCM.NOTE ---
Date and Time: 05/18/17 1221 Subjective Assessment: still c/o back pain, very short of breath - Review of Systems Constitutional: No Fever, No Chills Eyes: No Symptoms Ears, Nose, & Throat: No Symptoms Respiratory: Orthopnea, Short Of Breath, No Cough Cardiac: Chest Pain, Orthopnea, PND, No Edema, No Syncope Abdominal/Gastrointestinal: No Abdominal Pain, No Nausea, No Vomiting, No Diarrhea Genitourinary Symptoms: No Dysuria Musculoskeletal: No Back Pain, No Neck Pain Skin: No Rash Neurological: No Dizziness, No Focal Weakness, No Sensory Changes Psychological: No Symptoms Endocrine: No Symptoms Hematologic/Lymphatic: No Symptoms Immunological/Allergic: No Symptoms Objective Exam General Appearance: no apparent distress, alert Neurologic Exam: alert, oriented x 3, cooperative, normal mood/affect, nml cerebellar function, sensation nml, No motor deficits Skin Exam: normal color, warm, dry Eye Exam: PERRL, EOMI, eyes nml inspection Ears, Nose, Throat Exam: normal ENT inspection, pharynx normal, moist mucous membranes Neck Exam: normal inspection, non-tender, supple, full range of motion Respiratory Exam: diminished breath sounds, crackles/rales, rhonchi, wheezing, No respiratory distress Cardiovascular Exam: regular rate/rhythm, normal heart sounds Gastrointestinal/Abdomen Exam: soft, No tenderness, No mass Extremity Exam: normal inspection, normal range of motion Back Exam: normal inspection, normal range of motion, No CVA tenderness, No vertebral tenderness Pelvic Exam: deferred Rectal Exam: deferred OBJECTIVE DATA Vital Signs: Vital Signs - 24 hr Temp Pulse Resp BP Pulse Ox 05/18/17 11:47 97.6 F 46 L 18 182/78 98 05/18/17 11:00 98.1 F 62 16 104/58 92 L 05/18/17 09:49 64 22 92 L 05/18/17 07:24 97.7 F 68 18 137/69 96 05/18/17 04:07 98.0 F 65 18 123/56 98 05/17/17 23:52 97.7 F 56 L 16 102/57 100 05/17/17 20:00 97.9 F 62 18 115/58 99 05/17/17 19:17 91 L 05/17/17 16:10 97.7 F 63 20 120/62 96 05/17/17 12:57 97.6 F 84 20 129/76 97 Oxygen-Last 24 hours O2 Percentage 2 Liters = 28% O2 Percentage 2 Liters = 28% O2 Percentage 2 Liters = 28% O2 Percentage 2 Liters = 28% O2 Percentage 2 Liters = 28% O2 Percentage 2 Liters = 28% Pain Assessment - Last Documented Pain Intensity 3 Pain Scale Used 0-10 Pain Scale Intake and Output: Intake & Output 05/16/17 05/17/17 05/18/17 05/19/17 11:59 11:59 11:59 11:59 Intake Total 1620 1100 Output Total 500 1300 Balance 1120 -200 Weight 59.103 kg 59.421 kg 61.416 kg Assessment/Plan (1) Acute exacerbation of CHF (congestive heart failure) Current Visit: Yes Status: Acute Qualifiers: Congestive heart failure type: combined Qualified Code(s): I50.43 - Acute on chronic combined systolic (congestive) and diastolic (congestive) heart failure Assessment & Plan: Last Vital Signs Temp 97.6 F 05/18/17 11:47 Pulse 46 L 05/18/17 11:47 Resp 18 05/18/17 11:47 BP 182/78 05/18/17 11:47 Pulse Ox 98 05/18/17 11:47 Allergies Sulfa (Sulfonamide Antibiotics) Allergy (Verified 01/01/17 17:58) rash Active Medications Amlodipine Besylate (Norvasc 5 Mg) 2.5 mg PO HS MARCELLUS Stop: 06/15/17 21:59 Last Admin: 05/17/17 21:30 Dose: 2.5 mg Aspirin (Ecotrin 325 Mg) 325 mg PO BID MARCELLUS Stop: 06/15/17 10:59 Last Admin: 05/18/17 09:27 Dose: 325 mg Bumetanide (Bumex 1 Mg) 1 mg PO DAILY MARCELLUS Stop: 06/16/17 09:59 Last Admin: 05/18/17 09:27 Dose: 1 mg Diazepam (Valium 5 Mg) 10 mg PO HS MARCELLUS Stop: 06/15/17 21:59 Last Admin: 05/17/17 21:30 Dose: 5 mg Fish Oil (Fish Oil 1,000 Mg Capsule) 1,000 mg PO DAILY MARCELLUS Stop: 06/15/17 10:59 Last Admin: 05/18/17 09:26 Dose: 1,000 mg Hydrochlorothiazide (Hydrodiuril 25 Mg) 12.[address] [facility] Stop: 06/15/17 10:59 Last Admin: 05/18/17 09:26 Dose: 12.5 mg Isosorbide Mononitrate (Imdur 30 Mg) [address] [facility] Stop: 06/16/17 09:59 Last Admin: 05/18/17 09:27 Dose: 30 mg Losartan Potassium (Cozaar 50 Mg) [address] [facility] Stop: 06/15/17 10:28 Last Admin: 05/18/17 09:27 Dose: 50 mg Metoprolol Tartrate (Lopressor 50 Mg) [address] [facility] Stop: 06/15/17 10:59 Last Admin: 05/18/17 09:26 Dose: 100 mg Morphine Sulfate (Morphine Sulfate 2 Mg Inj) 2 mg IV Q4H PRN PRN PRN Reason: PAIN Stop: 05/21/17 20:28 Last Admin: 05/17/17 04:41 Dose: 2 mg Nitroglycerin (Nitrostat 0.4 Mg Tablet) 0.4 mg SL Q5MIN PRN MR X 3 PRN PRN Reason: CHEST PAIN Stop: 06/15/17 10:28 Intake & Output 05/18/17 05/19/17 11:59 11:59 Intake Total 1100 Output Total 1300 Balance -200 Weight 61.416 kg Orders 05/18/17 05:30 CULTURE,URINE Urgent 05/18/17 09:12 Consult Cardiology ROUTINE 05/18/17 09:36 Respiratory Nebulizer STAT Code(s): I50.9 - HEART FAILURE, UNSPECIFIED (2) Hx of aortic valve insufficiency Current Visit: Yes Status: Chronic Code(s): Z86.79 - PERSONAL HISTORY OF OTHER DISEASES OF THE CIRCULATORY SYSTEM (3) Hyponatremia Current Visit: Yes Status: Resolved Code(s): E87.1 - HYPO-OSMOLALITY AND HYPONATREMIA
[2017-05-18 15:23] LABS: Mean Cell Volume 84.7 fl (78-100); Mean Platelet Volume 9.7 fl (6-9.5); Platelet Count 251 K/mm3 (150-450); Red Blood Count 3.86 M/mm3 (4.1-5.4); Red Cell Distribution Width 14.5 % (11.5-14.0); White Blood Count 7.8 K/mm3 (4.0-10.5)
[2017-05-18 15:25] LABS: Mean Corpuscular Hemoglobin 28.4 pg (26-32)
[2017-05-18 15:36] LABS: ALBUMIN 3.6 g/dL (3.4-5.0); ALKALINE PHOSPHATASE 74 U/L (46-116); ANION GAP 8.9 MEQ/L (5-15); BLOOD UREA NITROGEN 9 mg/dL (9-20); CHLORIDE 85 mEq/L (98-107); Carbon Dioxide 34.5 mEq/L (21-32); Glucose 111 MG/DL (70-110); Potassium 3.1 mEq/L (3.5-5.1); SGOT/AST 29 U/L (15-37); SGPT/ALT 41 U/L (12-78); SODIUM 125 mEq/L (136-145); Total Protein 6.5 gm/dL (6.4-8.2)
[2017-05-18] MEDS: MORPHINE SULFATE 2 MG INJ IV PRN (17:39)
[2017-05-18] MEDS: NORVASC 5 MG PO SCH (21:48)
[2017-05-18] MEDS: Valium 5 MG PO SCH (21:50)
--- NOTE | 2017-05-19 08:27 | PCM.NOTE ---
Date and Time: 05/19/17825 Subjective Assessment: doing better - Review of Systems Constitutional: No Fever, No Chills Eyes: No Symptoms Ears, Nose, & Throat: No Symptoms Respiratory: No Cough, No Short Of Breath Cardiac: No Chest Pain, No Edema, No Syncope Abdominal/Gastrointestinal: No Abdominal Pain, No Nausea, No Vomiting, No Diarrhea Genitourinary Symptoms: No Dysuria Musculoskeletal: No Back Pain, No Neck Pain Skin: No Rash Neurological: No Dizziness, No Focal Weakness, No Sensory Changes Psychological: No Symptoms Endocrine: No Symptoms Hematologic/Lymphatic: No Symptoms Immunological/Allergic: No Symptoms Objective Exam General Appearance: no apparent distress, alert Neurologic Exam: alert, oriented x 3, cooperative, normal mood/affect, nml cerebellar function, sensation nml, No motor deficits Skin Exam: normal color, warm, dry Eye Exam: PERRL, EOMI, eyes nml inspection Ears, Nose, Throat Exam: normal ENT inspection, pharynx normal, moist mucous membranes Neck Exam: normal inspection, non-tender, supple, full range of motion, JVD Respiratory Exam: crackles/rales, rhonchi, No respiratory distress Cardiovascular Exam: regular rate/rhythm, normal heart sounds, murmur Gastrointestinal/Abdomen Exam: soft, No tenderness, No mass Extremity Exam: normal inspection, normal range of motion Back Exam: normal inspection, normal range of motion, No CVA tenderness, No vertebral tenderness Pelvic Exam: deferred Rectal Exam: deferred OBJECTIVE DATA Vital Signs: Vital Signs - 24 hr Temp Pulse Resp BP Pulse Ox 05/19/17 07:14 97.7 F 66 18 108/58 99 05/19/17 04:05 98.2 F 67 18 104/55 99 05/18/17 23:30 97.9 F 69 18 117/56 96 05/18/17 20:34 95 05/18/17 20:00 97.5 F 72 19 105/59 94 L 05/18/17 16:00 98.2 F 69 17 125/60 97 05/18/17 11:47 98.1 F 62 16 104/58 92 L 05/18/17 11:00 98.1 F 62 16 104/58 92 L 05/18/17 09:49 64 22 92 L Oxygen-Last 24 hours O2 Percentage 2 Liters = 28% O2 Percentage 2 Liters = 28% O2 Percentage 2 Liters = 28% O2 Percentage 2 Liters = 28% O2 Percentage 2 Liters = 28% O2 Percentage 2 Liters = 28% O2 Percentage 2 Liters = 28% Pain Assessment - Last Documented Pain Intensity 5 Pain Scale Used FLACC Intake and Output: Intake & Output 05/16/17 05/17/17 05/18/17 05/19/17 11:59 11:59 11:59 11:59 Intake Total 1620 1100 920 Output Total 500 1300 1450 Balance 1120 -200 -530 Weight 59.103 kg 59.421 kg 61.416 kg 61.734 kg Lab Results: Lab Results-Last 24 Hours 05/18/17 05/18/17 05/18/17 Range/Units 15:09 15:09 15:09 WBC 7.8 (4.0-10.5) K/mm3 RBC 3.86 L (4.1-5.4) M/mm3 Hgb 11.0 L (12.0-16.0) gm/dl Hct 32.7 L (35-47) % MCV 84.7 (78-100) fl MCH 28.4 (26-32) pg MCHC 33.6 (32-36) g/dl RDW 14.5 H (11.5-14.0) % Plt Count 251 (150-450) K/mm3 MPV 9.7 H (6-9.5) fl Sodium 125 L (136-145) mEq/L Potassium 3.1 L (3.5-5.1) mEq/L Chloride 85 L (98-107) mEq/L Carbon Dioxide 34.5 H (21-32) mEq/L Anion Gap 8.9 (5-15) MEQ/L BUN 9 (9-20) mg/dL Creatinine 0.77 (0.55-1.30) mg/dl Estimated GFR > 60 ML/MIN Glucose 111 H (70-110) MG/DL Calcium 9.3 (8.5-10.1) mg/dL Total Bilirubin 0.60 (0.2-1.0) mg/dL AST 29 (15-37) U/L ALT 41 (12-78) U/L Alkaline Phosphatase 74 (46-116) U/L NT-Pro-B Natriuret Pep 46609 H (0-450) pg/ml Serum Total Protein 6.5 (6.4-8.2) gm/dL Albumin 3.6 (3.4-5.0) g/dL Assessment/Plan (1) Acute exacerbation of CHF (congestive heart failure) Current Visit: Yes Status: Acute Qualifiers: Congestive heart failure type: combined Qualified Code(s): I50.43 - Acute on chronic combined systolic (congestive) and diastolic (congestive) heart failure Assessment & Plan: improving Code(s): I50.9 - HEART FAILURE, UNSPECIFIED (2) Hx of aortic valve insufficiency Current Visit: Yes Status: Chronic Code(s): Z86.79 - PERSONAL HISTORY OF OTHER DISEASES OF THE CIRCULATORY SYSTEM (3) Hyponatremia Current Visit: Yes Status: Acute Code(s): E87.1 - HYPO-OSMOLALITY AND HYPONATREMIA
[2017-05-19] MEDS ORDERED: PROVENTIL 2.5 MG/3 ML NEB IH ONE (08:42)
[2017-05-19] MEDS: Lopressor 50 MG PO SCH ×2 (09:05→22:04)
[2017-05-19] MEDS: BUMEX 1 MG PO SCH (09:05)
[2017-05-19] MEDS: Cozaar 50 MG PO SCH (09:05)
[2017-05-19] MEDS: Imdur 30 MG PO SCH (09:06)
[2017-05-19] MEDS: Ecotrin 325 MG PO SCH ×2 (09:06→22:02)
[2017-05-19] MEDS: FISH OIL 1,000 MG CAPSULE PO SCH (09:06)
[2017-05-19] MEDS: hydroDIURIL 25 MG PO SCH (09:06)
[2017-05-19] MEDS ORDERED: PROVENTIL 2.5 MG/3 ML NEB IH PRN (09:51)
[2017-05-19] MEDS: Klor Con 10 MEQ PO SCH ×2 (13:07→22:02)
[2017-05-19] MEDS: Colace 100 MG PO SCH (22:02)
[2017-05-19] MEDS: NORVASC 5 MG PO SCH (22:04)
[2017-05-19] MEDS: Valium 5 MG PO SCH (22:04)
[2017-05-19] MEDS: ZOLOFT 50 MG TABLET PO SCH (22:05)
[2017-05-20] MEDS: MORPHINE SULFATE 2 MG INJ IV PRN (04:24)
[2017-05-20 05:56] LABS: BASOPHIL % 0.1 % (0.0-0.4); Eosinophil % 0.3 % (0.00-5.0); Granulocytes % 78.2 % (36.0-66.0); Lymphocytes % 10.5 % (24.0-44.0); Mean Cell Volume 85.3 fl (78-100); Mean Platelet Volume 9.9 fl (6-9.5); Monocytes % 10.9 % (0.0-12.0); Platelet Count 263 K/mm3 (150-450); Red Blood Count 3.88 M/mm3 (4.1-5.4); Red Cell Distribution Width 14.8 % (11.5-14.0); White Blood Count 10.8 K/mm3 (4.0-10.5)
[2017-05-20 06:18] LABS: ANION GAP 11.4 MEQ/L (5-15); BLOOD UREA NITROGEN 9 mg/dL (9-20); CHLORIDE 85 mEq/L (98-107); Glucose 107 MG/DL (70-110); Potassium 3.2 mEq/L (3.5-5.1); SODIUM 127 mEq/L (136-145)
--- NOTE | 2017-05-20 09:43 | XRAY ---
Indication: Pain. No known injury. Comparison: None Frontal/lateral thoracic spine demonstrates 12 typical rib-bearing thoracic vertebral segments in normal alignment with osteopenia, minimal multilevel degenerative changes, cardiomegaly, CABG surgery, mitral valve calcifications, moderate left effusion, and right midlung subsegmental atelectasis/scarring. No other bony, articular, or soft tissue abnormalities.
[2017-05-20] MEDS: BUMEX 1 MG PO SCH (09:53)
[2017-05-20] MEDS: Cozaar 50 MG PO SCH (09:53)
[2017-05-20] MEDS: Klor Con 10 MEQ PO SCH ×2 (09:53→21:59)
[2017-05-20] MEDS: FISH OIL 1,000 MG CAPSULE PO SCH (09:53)
[2017-05-20] MEDS: Ecotrin 325 MG PO SCH ×2 (09:53→21:59)
[2017-05-20] MEDS: Lopressor 50 MG PO SCH ×2 (09:53→22:03)
[2017-05-20] MEDS: Imdur 30 MG PO SCH (09:53)
--- NOTE | 2017-05-20 10:47 | CONS ---
CONSULT DATE: 05/19/2017 BRIEF HISTORY: This is an 87 year-old female who was seen because of shortness of breath and back pains. The patient's main complaint when she presented to the hospital was that of back pain. She is somewhat better. She also reports being short of breath with very little exertion. She is known to have significant aortic stenosis. In addition, she is known to have coronary artery disease and has undergone four vessel coronary artery bypass surgery in 1997. She has been recommended to have TAVR (transcatheter aortic valve replacement) but she has refused the procedure, in fact she has signed herself on DNR status. CARDIAC RISK FACTORS: Negative for diabetes. Positive for hypertension. She has a fairly remote history of tobacco usage. She has hyperlipidemia. FAMILY HISTORY: Positive for coronary artery disease with a brother having massive myocardial infarction. CURRENT MEDICATIONS: Amlodipine 2.5 mg, aspirin 325 mg twice a day, bumetanide 1 mg daily, diazepam 10 mg at bedtime, Coreg 100 mg a day, hydrochlorothiazide 12.5 mg a day, isosorbide 30 mg daily, losartan 50 mg twice a day, metoprolol 50 mg twice a day, [place]-3 fatty acids 1,000 mg daily, Zoloft 50 mg at bedtime. REVIEW OF SYSTEMS: CARDIAC SONOGRAPHER: No history of stroke or seizures. RESPIRATORY: No chronic cough. No hemoptysis. GI: No history of peptic ulcer or colon disorder. : Negative for dysuria, no hematuria. PERIPHERAL VASCULAR: No history of DVT or claudication. MUSCULOSKELETAL: She has some degenerative joint disorder. ENDOCRINE: No thyroid disorder. PAST SURGICAL HISTORY: Hysterectomy, coronary artery bypass graft, tonsillectomy. SOCIAL HISTORY: She is . She has six children. She has no significant alcohol intake. PHYSICAL EXAMINATION: Her blood pressure is 104/55 with heart rate 67, respiratory rate about 18. GENERAL: The patient is an elderly female who is alert, oriented, who is not in any form of distress. HEENT: Slightly pale conjunctivae. NECK: There is a transmitted murmur heard in both carotids. CHEST: There are some basal crackles and some rhonchi with the breath sounds harsh. CARDIAC: Heart tones are normal. There is a grade 3/6 holosystolic ejection murmur crescendo type in the aortic area and there is no diastolic component. The rhythm is regular. ABDOMEN: Soft with normal bowel sounds. EXTREMITIES: There is trace edema. Palpable distal pulses. LAB DATA AND DIAGNOSTIC TESTS: The EKG shows sinus rhythm with ST-T wave changes secondary to left ventricular hypertrophy and/or ischemia. IMPRESSION: In essence the shortness of breath is mostly secondary to the aortic stenosis. She has significant basal crackles. We are going to switch her hydrochlorothiazide to Furosemide. Will reduce her Losartan as blood pressure is marginal. I had a lengthy discussion about therapeutic options including a TAVR which the patient has declined. She would like to continue with medical therapy and the family was made aware that she is at increased risk for mortality because of the presence of congestive heart failure. We will go ahead and get an x-ray of the thoracic spine to rule out any significant degenerative joint disease that might explain some of her back pains. I will be following her up in the clinic.
--- NOTE | 2017-05-20 13:05 | PCM.NOTE ---
Date and Time: 05/20/17 1305 Subjective Assessment: doing better - Review of Systems Constitutional: No Fever, No Chills Eyes: No Symptoms Ears, Nose, & Throat: No Symptoms Respiratory: Orthopnea, Short Of Breath, Wheezing, No Cough Cardiac: No Chest Pain, No Edema, No Syncope Abdominal/Gastrointestinal: No Abdominal Pain, No Nausea, No Vomiting, No Diarrhea Genitourinary Symptoms: No Dysuria Musculoskeletal: No Back Pain, No Neck Pain Skin: No Rash Neurological: No Dizziness, No Focal Weakness, No Sensory Changes Psychological: No Symptoms Endocrine: No Symptoms Hematologic/Lymphatic: No Symptoms Immunological/Allergic: No Symptoms Objective Exam General Appearance: no apparent distress, alert Neurologic Exam: alert, oriented x 3, cooperative, normal mood/affect, nml cerebellar function, sensation nml, No motor deficits Skin Exam: normal color, warm, dry Eye Exam: PERRL, EOMI, eyes nml inspection Ears, Nose, Throat Exam: normal ENT inspection, pharynx normal, moist mucous membranes Neck Exam: normal inspection, non-tender, supple, full range of motion Respiratory Exam: normal breath sounds, lungs clear, No respiratory distress Cardiovascular Exam: regular rate/rhythm, normal heart sounds Gastrointestinal/Abdomen Exam: soft, No tenderness, No mass Extremity Exam: normal inspection, normal range of motion Back Exam: normal inspection, normal range of motion, No CVA tenderness, No vertebral tenderness Pelvic Exam: deferred Rectal Exam: deferred OBJECTIVE DATA Vital Signs: Vital Signs - 24 hr Temp Pulse Resp BP Pulse Ox 05/20/17 11:37 /05/20/17 11:36 97.4 F 59 L 18 78/46 97 05/20/17 11:14 /05/20/17 08:39 69 18 95 05/20/17 07:25 97.5 F 73 18 105/55 95 05/20/17 04:00 97.8 F 70 16 103/55 99 05/19/17 23:39 98.1 F 66 16 103/56 98 05/19/17 20:00 98.0 F 83 20 136/78 98 05/19/17 16:00 97.8 F 73 18 126/67 97 Oxygen-Last 24 hours O2 Percentage 2 Liters = 28% O2 Percentage 2 Liters = 28% O2 Percentage 2 Liters = 28% O2 Percentage 2 Liters = 28% O2 Percentage 2 Liters = 28% Pain Assessment - Last Documented Pain Intensity 5 Pain Scale Used 0-10 Pain Scale Intake and Output: Intake & Output 05/18/17 05/19/17 05/20/17 05/21/17 11:59 11:59 11:59 11:59 Intake Total 1100 1160 1240 240 Output Total 1300 1850 1100 Balance -200 -690 140 240 Weight 61.416 kg 61.734 kg 59.421 kg Lab Results: Lab Results-Last 24 Hours 05/20/17 05/20/17 Range/Units 05:20 05:20 WBC 10.8 H (4.0-10.5) K/mm3 RBC 3.88 L (4.1-5.4) M/mm3 Hgb 10.9 L (12.0-16.0) gm/dl Hct 33.1 L (35-47) % MCV 85.3 (78-100) fl MCH 28.0 (26-32) pg MCHC 32.9 (32-36) g/dl RDW 14.8 H (11.5-14.0) % Plt Count 263 (150-450) K/mm3 MPV 9.9 H (6-9.5) fl Gran % 78.2 H (36.0-66.0) % Lymphocytes % 10.5 L (24.0-44.0) % Monocytes % 10.9 (0.0-12.0) % Eosinophils % 0.3 (0.00-5.0) % Basophils % 0.1 (0.0-0.4) % Basophils # 0.01 (0-0.4) Sodium 127 L (136-145) mEq/L Potassium 3.2 L (3.5-5.1) mEq/L Chloride 85 L (98-107) mEq/L Carbon Dioxide 34.0 H (21-32) mEq/L Anion Gap 11.4 (5-15) MEQ/L BUN 9 (9-20) mg/dL Creatinine 0.63 (0.55-1.30) mg/dl Estimated GFR > 60 ML/MIN Glucose 107 (70-110) MG/DL Calcium 9.3 (8.5-10.1) mg/dL Radiology Exams: Radiology Procedures Category Date Time Status THORACIC SPINE (AP,LAT,SWIMM) Routine Exams 05/19/17 19:20 Completed Assessment/Plan (1) Acute exacerbation of CHF (congestive heart failure) Current Visit: Yes Status: Acute Qualifiers: Congestive heart failure type: combined Qualified Code(s): I50.43 - Acute on chronic combined systolic (congestive) and diastolic (congestive) heart failure Code(s): I50.9 - HEART FAILURE, UNSPECIFIED (2) Hx of aortic valve insufficiency Current Visit: Yes Status: Chronic Code(s): Z86.79 - PERSONAL HISTORY OF OTHER DISEASES OF THE CIRCULATORY SYSTEM (3) Hyponatremia Current Visit: Yes Status: Acute Code(s): E87.1 - HYPO-OSMOLALITY AND HYPONATREMIA
[2017-05-20] MEDS: NORVASC 5 MG PO SCH (21:59)
[2017-05-20] MEDS: Colace 100 MG PO SCH (21:59)
[2017-05-20] MEDS: ZOLOFT 50 MG TABLET PO SCH (22:02)
[2017-05-20] MEDS: Valium 5 MG PO SCH (22:03)
[2017-05-21 05:47] LABS: ALBUMIN 3.2 g/dL (3.4-5.0); ALKALINE PHOSPHATASE 70 U/L (46-116); ANION GAP 10.4 MEQ/L (5-15); BLOOD UREA NITROGEN 13 mg/dL (9-20); CHLORIDE 86 mEq/L (98-107); Carbon Dioxide 35.1 mEq/L (21-32); Glucose 96 MG/DL (70-110); Potassium 3.5 mEq/L (3.5-5.1); SGOT/AST 24 U/L (15-37); SGPT/ALT 27 U/L (12-78); SODIUM 128 mEq/L (136-145); Total Protein 6.2 gm/dL (6.4-8.2)
[2017-05-21] MEDS: Imdur 30 MG PO SCH (08:41)
[2017-05-21] MEDS: BUMEX 1 MG PO SCH (08:41)
[2017-05-21] MEDS: FISH OIL 1,000 MG CAPSULE PO SCH (08:41)
[2017-05-21] MEDS: Lopressor 50 MG PO SCH (08:42)
[2017-05-21] MEDS: Cozaar 50 MG PO SCH (08:42)
[2017-05-21] MEDS: Klor Con 10 MEQ PO SCH (08:42)
[2017-05-21] MEDS: Ecotrin 325 MG PO SCH (08:42)
--- NOTE | 2017-05-21 09:35 | PCM.DS ---
Discharge Summary Date of Admission: 05/16/17 10:13 Admitting Physician: KAYLA ISLAS Consults: Consults on Case 05/18/17 09:12 Consult Cardiology ROUTINE Primary Care Provider: KAYLA ISLAS Allergies Allergies Sulfa (Sulfonamide Antibiotics) Allergy (Verified 01/01/17 17:58) [facility] Hospital Summary - Hospital Course Hospital Course: Chief Complaint Diagnosis ACUTE CHF, HYPONATREMIA, SOB Allergies Allergy/AdvReac Type Severity Reaction Status Date / Time Sulfa (Sulfonamide Allergy Verified 01/01/17 17:58 Antibiotics) Vital Signs (Last 24 hours) Temp Pulse Resp BP Pulse Ox 05/21/17 07:05 97.7 F 90 18 117/69 94 L 05/21/17 04:00 97.9 F 71 14 97/54 98 05/21/17 00:00 97.7 F 64 16 91/50 96 05/20/17 20:23 70 18 97 05/20/17 20:00 97.6 F 72 17 98/54 96 05/20/17 16:37 97.4 F 63 16 89/55 99 05/20/17 15:00 59 L 18 99/70 97 05/20/17 11:37 99/70 05/20/17 11:36 97.4 F 59 L 18 78/46 97 05/20/17 11:14 99/70 Current Medications Generic Name Dose Route Start Last Admin Trade Name Freq PRN Reason Stop Dose Admin Albuterol Sulfate 2.5 mg 05/19/17 09:51 05/19/17 09:00 Proventil 2.5 Mg/3 Ml Neb IH 06/18/17 09:50 2.5 mg Q4H PRN PRN Administration SHORTNESS OF BREATH/WHEEZING Amlodipine Besylate 2.5 mg 05/16/17 22:00 05/20/17 21:59 Norvasc 5 Mg PO 06/15/17 21:59 2.5 mg HS MARCELLUS Administration Aspirin 325 mg 05/16/17 11:00 05/21/17 08:42 Ecotrin 325 Mg PO 06/15/17 10:59 325 mg BID MARCELLUS Administration Bumetanide 2 mg 05/20/17 10:00 05/21/17 08:41 Bumex 1 Mg PO 06/19/17 09:59 2 mg DAILY MARCELLUS Administration Diazepam 10 mg 05/16/17 22:00 05/20/17 22:03 Valium 5 Mg PO 06/15/17 21:59 Not Given HS MARCELLUS Docusate Sodium 100 mg 05/19/17 22:00 05/20/17 21:59 Colace 100 Mg PO 06/18/17 21:59 100 mg HS MARCELLUS Administration Fish Oil 1,000 mg 05/16/17 11:00 05/21/17 08:41 Fish Oil 1,000 Mg Capsule PO 06/15/17 10:59 1,000 mg DAILY MARCELLUS Administration Isosorbide Mononitrate 30 mg 05/17/17 10:00 05/21/17 08:41 Imdur 30 Mg PO 06/16/17 09:59 30 mg QAM MARCELLUS Administration Losartan Potassium 50 mg 05/20/17 10:00 05/21/17 08:42 Cozaar 50 Mg PO 06/19/17 09:59 50 mg DAILY MARCELLUS Administration Metoprolol Tartrate 50 mg 05/19/17 22:00 05/21/17 08:42 Lopressor 50 Mg PO 06/18/17 21:59 50 mg BID MARCELLUS Administration Morphine Sulfate 2 mg 05/16/17 20:29 05/20/17 04:24 Morphine Sulfate 2 Mg Inj IV 05/21/17 20:28 2 mg Q4H PRN PRN Administration PAIN Nitroglycerin 0.4 mg 05/16/17 10:29 Nitrostat 0.4 Mg Tablet SL 06/15/17 10:28 Q5MIN PRN MR X 3 PRN CHEST PAIN Potassium Chloride 10 meq 05/19/17 13:00 05/21/17 08:42 Klor Con 10 Meq PO 06/18/17 12:59 10 meq BID MARCELLUS Administration Sertraline HCl 50 mg 05/19/17 22:00 05/20/17 22:02 Zoloft 50 Mg Tablet PO 06/18/17 21:59 50 mg HS MARCELLUS Administration Discontinued Medications Generic Name Dose Route Start Last Admin Trade Name Freq PRN Reason Stop Dose Admin Albuterol Sulfate Confirm 05/19/17 08:42 Proventil 2.5 Mg/3 Ml Neb Administered 05/19/17 08:43 Dose 2.5 mg IH .STK-MED ONE Albuterol/Ipratropium 3 ml 05/18/17 09:36 05/18/17 09:41 Duoneb 0.5-3 Mg/3 Ml Neb IH 05/18/17 09:37 3 ml STAT ONE Administration Bumetanide 1 mg 05/17/17 10:00 05/19/17 09:05 Bumex 1 Mg PO 06/16/17 09:59 1 mg DAILY MARCELLUS Administration Hydrochlorothiazide 12.5 mg 05/16/17 11:00 05/19/17 09:06 Hydrodiuril 25 Mg PO 06/15/17 10:59 12.5 mg DAILY MARCELLUS Administration Hydromorphone HCl 0.5 mg 05/16/17 08:48 05/16/17 10:01 Hydromorphone 1 Mg/Ml Ampule IV 05/16/17 08:49 Not Given STAT ONE Sodium Chloride 1,000 mls @ 50 mls/hr 05/16/17 09:00 05/16/17 09:09 Sodium Chloride 0.9% 1000 Ml IV 06/15/17 08:59 50 mls/hr .Q20H MARCELLUS Administration Sodium Chloride Confirm 05/16/17 09:00 Sodium Chloride 0.9% 1000 Ml Administered 05/16/17 09:01 Dose 1,000 mls @ ud .ROUTE .STK-MED ONE Losartan Potassium 50 mg 05/16/17 10:29 05/19/17 09:05 Cozaar 50 Mg PO 06/15/17 10:28 50 mg BID MARCELLUS Administration Metoprolol Tartrate 100 mg 05/16/17 11:00 05/19/17 09:05 Lopressor 50 Mg PO 06/15/17 10:59 100 mg BID MARCELLUS Administration Intake & Output (Last 24 hours) 05/18/17 05/19/17 05/20/17 05/21/17 11:59 11:59 11:59 11:59 Intake Total 1100 1160 1240 1360 Output Total 1300 1850 1100 800 Balance -200 -690 140 560 Weight 61.416 kg 61.734 kg 59.421 kg 59.874 kg Microbiology Results (Last 24 hours) 05/18/17 05:30 Urine, Void Urine Culture - Final MIXED GISEL; 3 OR MORE TYPES. NO PREDOMINANT ORGANISM. NO FURTHER WORKUP. PLEASE RESUBMIT IF CLINICALLY INDICATED. Laboratory Results (Last 24 hours) 05/21/17 05:12 Sodium 128 L Potassium 3.5 Chloride 86 L Carbon Dioxide 35.1 H Anion Gap 10.4 BUN 13 Creatinine 0.66 Estimated GFR > 60 Glucose 96 Calcium 9.1 Total Bilirubin 0.60 AST 24 ALT 27 Alkaline Phosphatase 70 Serum Total Protein 6.2 L Albumin 3.2 L Orders (Last 24 hours) Category Date Time Status Ambulate Patient TID Care 05/20/17 13:47 Active CMP AM.LAB Lab 05/21/17 05:12 Completed Bumetanide 1 mg [Bumex 1 mg] Med 05/20/17 10:00 Active 2 mg PO DAILY Losartan Potassium 50 mg [Cozaar 50 MG] Med 05/20/17 10:00 Active 50 mg PO DAILY Patient Care Notes (Last 24 hours) 05/20/17 13:20 (created 05/20/17 16:17) Case Management Note by Shelby Higgins DR. ROUNDED AND EVALUATED, DISCUSSED PLAN OF CARE WITH PT. ALSO, DISCUSSED NEEDS AT HOME. PT REPORTS THAT SHE IS STILL NOT FEELING WELL TODAY AND HAS NOT BEEN WALKING MUCH. ORDERS RECEIVED TO AMBULATE PT IN [place] TODAY AND MONITOR SPO2. DISCUSSED AGAIN HHC SERVICES VS REHAB STAY. PT VERBALIZED UNDERSTANDING. DECLINED ADDNL NEEDS AT PRESENT. WILL CONTINUE TO FOLLOW FOR ALL DC NEEDS. Initialized on 05/20/17 16:17 - END OF NOTE 05/20/17 09:45 (created 05/20/17 16:16) Case Management Note by Shelby Higgins REVIEWED DISCHARGE PLAN, CONTINUES TO PLAN TO RETURN HOME WITH TO PRE EPISODIC LEVEL OF FNX. CURRENTLY, DENIES NEEDS FOR DISCHARGE. HAS A CANE THAT SHE USES FOR AMBULATION, PRN. WILL CONTINUE TO FOLLOW AND ASSESS FOR ALL DC NEEDS. Initialized on 05/20/17 16:16 - END OF NOTE - Vitals & Intake/Output Vital Signs: Vital Signs Temperature 97.7 F 05/21/17 07:05 Pulse Rate 90 05/21/17 07:05 Respiratory Rate 18 05/21/17 07:05 Blood Pressure 117/69 05/21/17 07:05 O2 Sat by Pulse Oximetry 94 L 05/21/17 07:05 Oxygen-Last Documented O2 Percentage 2 Liters = 28% Intake & Output: Intake & Output 05/18/17 05/19/17 05/20/17 05/21/17 11:59 11:59 11:59 11:59 Intake Total 1100 1160 1240 1360 Output Total 1300 1850 1100 800 Balance -200 -690 140 560 Weight 61.416 kg 61.734 kg 59.421 kg 59.874 kg - Lab Result Diagrams: 05/20/17 05:20 05/21/17 05:12 Lab Results-Last 24 Hrs: Lab Results-Last 24 Hours 05/21/17 Range/Units 05:12 Sodium 128 L (136-145) mEq/L Potassium 3.5 (3.5-5.1) mEq/L Chloride 86 L (98-107) mEq/L Carbon Dioxide 35.1 H (21-32) mEq/L Anion Gap 10.4 (5-15) MEQ/L BUN 13 (9-20) mg/dL Creatinine 0.66 (0.55-1.30) mg/dl Estimated GFR > 60 ML/MIN Glucose 96 (70-110) MG/DL Calcium 9.1 (8.5-10.1) mg/dL Total Bilirubin 0.60 (0.2-1.0) mg/dL AST 24 (15-37) U/L ALT 27 (12-78) U/L Alkaline Phosphatase 70 (46-116) U/L Serum Total Protein 6.2 L (6.4-8.2) gm/dL Albumin 3.2 L (3.4-5.0) g/dL Micro Results-Entire Visit: Microbiology 05/18/17 05:30 Urine Culture - Final Urine, Void MIXED GISEL; 3 OR MORE TYPES. NO PREDOMINANT ORGANISM. NO FURTHER WORKUP. PLEASE RESUBMIT IF CLINICALLY INDICATED. - Radiology Exams Ordered Rad Exams-Entire Visit: Radiology Procedures Category Date Time Status THORACIC SPINE (AP,LAT,SWIMM) Routine Exams 05/19/17 19:20 Completed - Procedures and Test Procedures and Tests throughout Hospitalization: Therapy Orders & Screens 05/18/17 09:36 Respiratory Nebulizer STAT Comment: Diagnosis: shortness of breath and mid back pain for 1 day 05/19/17 09:00 Respiratory Nebulizer PRN Comment: Diagnosis: ACUTE CHF, HYPONATREMIA, SOB Discharge Exam General Appearance: no apparent distress, alert Neurologic Exam: alert, oriented x 3, cooperative, normal mood/affect, nml cerebellar function, sensation nml, No motor deficits Skin Exam: normal color, warm, dry Eye Exam: PERRL, EOMI, eyes nml inspection Ears, Nose, Throat Exam: normal ENT inspection, pharynx normal, moist mucous membranes Neck Exam: normal inspection, non-tender, supple, full range of motion Respiratory Exam: normal breath sounds, lungs clear, No respiratory distress Cardiovascular Exam: regular rate/rhythm, normal heart sounds Gastrointestinal/Abdomen Exam: soft, No tenderness, No mass Extremity Exam: normal inspection, normal range of motion Back Exam: normal inspection, normal range of motion, No CVA tenderness, No vertebral tenderness Pelvic Exam: deferred Rectal Exam: deferred Final Diagnosis/Problem List - Final Discharge Diagnosis/Problem (1) Acute exacerbation of CHF (congestive heart failure) Current Visit: Yes Status: Acute Assessment & Plan: resolving (2) Hx of aortic valve insufficiency Current Visit: Yes Status: Chronic Priority: High (3) Hyponatremia Current Visit: Yes Status: Resolved - Discharge Discharge Date: 05/21/17 Disposition: Home, Self-Care Condition: Fair Prescriptions: New Tramadol HCl 50 mg [Ultram 50 mg] 50 mg PO QID #60 tablet Continue Diazepam 10 mg PO QHS [place]-3 Fatty Acids [Fish Oil] 1,200 mg PO DAILY Aspirin 325 mg PO BID Hydrochlorothiazide 12.5 mg DAILY Amlodipine Besylate 2.5 mg PO HS Metoprolol Tartrate 100 mg PO BID Losartan Potassium 50 mg PO BID Nitroglycerin 0.4 mg Tablet [Nitrostat 0.4 MG Tablet] 0.4 mg SL Q5MIN PRN MR X 3 PRN #1 bottle PRN Reason: Chest Pain Instructions: Heart Failure Additional Instructions: Follow up with on 05/26/17@ 2p.m. at . office and follow up with at [facility] on 05/27/17@ 10:15 a.m. Follow up with: REBECCA MARTE [ACTIVE STAFF] - 05/26/17 2:00 pm [facility] KAYLA ISLAS MD [Primary Care Provider] - 05/27/17 10:15 am (at [facility])
[2017-05-21 12:07] VITALS: O2SAT 94
[2017-05-21 12:41] VITALS: BP 106/63; PULSE 75
== END 2017-05-21 15:15 | disposition home health service (06) | DRG 292 ==
LOC: ED 08:37 → MED SURG 10:13 → OBSVTOIN 10:13
PROVIDERS: ADMIT General Practice; ATTEND General Practice
DX: I50.43 Acute on chronic combined systolic (congestive) and diastolic (congestive) heart failure (principal); E87.1 Hypo-osmolality and hyponatremia; I35.2 Nonrheumatic aortic (valve) stenosis with insufficiency; I10 Essential (primary) hypertension; E78.5 Hyperlipidemia, unspecified; M19.90 Unspecified osteoarthritis, unspecified site; Z95.1 Presence of aortocoronary bypass graft; D64.9 Anemia, unspecified; M54.5 Low back pain
CPT/HCPCS: 36000; 36415; 71020; 72072; 80048; 80053; 81000; 83605; 83880; 84484; 85025; 85027; 87086; 93005; 93041; 94640; 94760; 94762; 96360; 99285; J2270; A9270-GY

== ENCOUNTER 2019-01-20 09:15 | Observation (INO) | payer MEDICARE ==
[2019-01-20] MEDS ORDERED: Zofran 4 MG/2 ML VIAL IV ONE (10:02)
--- NOTE | 2019-01-20 10:02 | ERPHSYRPT ---
- History of Present Illness Time Seen by Provider: 01/20/19 09:58 Historian: patient Exam Limitations: no limitations Patient Subjective Stated Complaint: PT states "I started this new med and now I am vomiting. I am aslo shivering and shaking. It all started last thursday or thursday." Triage Nursing Assessment: Pt presented through the front doors in a wheelchair. Pt alert and oriented X 3, skin pwd. PT able to speak in clear full sentences. PT in no apparent respiratory distress. PT on home O2. Physician History: 88-year-old white female with history of cataracts, congestive heart failure, hyperlipidemia, high blood pressure, arthritis, fibroids, anemia Patient arrives with complaints that she has been vomiting no off-and-on for a week she states she vomits whenever she eats she has some epigastric pain she states that she feels like she has a lot of sputum which she is swallowing She denies any chest pain denies shortness of breath she has been coughing no fevers Past medical history includes cataracts, congestive heart failure, hyperlipidemia, high blood pressure, arthritis, fibroids, and anemia Past surgical history includes hysterectomy, lumpectomy, CABG, tonsillectomy Social history denies tobacco alcohol or illicit drug use Timing/Duration: week(s) (o) Activities at Onset: none Quality: aching, other (epigastric tenderness) Abdominal Pain Onset Location: epigastric Severity of Pain-Max: none Severity of Pain-Current: none Modifying Factors: Improves With: vomiting. Worsens With: analgesics, antacids , breathing, coughing, defecating, eating ( small bowel and on for), exercise, lying down, movement, palpation, rest, urinating, position, walking Associated Symptoms: nausea, vomiting, No back, No chest pain, No diaphoresis, No diarrhea, No fever/chills, No fatigue, No headache, No heartburn, No loss of appetite, No neck pain, No rash, No shortness of breath, No syncope, No testicular pain Allergies/Adverse Reactions: Sulfa (Sulfonamide Antibiotics) Allergy (Verified 01/01/17 17:58) rash Home Medications: Aspirin 325 mg PO BID 04/15/15 [History] [place]-3 Fatty Acids [Fish Oil] 1,200 mg PO DAILY 04/15/15 [History] diazePAM [Diazepam] 10 mg PO QHS 04/15/15 [History] Losartan Potassium 50 mg PO BID 01/01/17 [History] Hx Tetanus, Diphtheria Vaccination/Date Given: No Hx Influenza Vaccination/Date Given: No Hx Pneumococcal Vaccination/Date Given: No Immunizations Up to Date: Yes - Review of Systems Constitutional: No Fever, No Chills Eyes: No Symptoms Ears, Nose, & Throat: No Symptoms Respiratory: Cough, No No Symptoms, No Dyspnea Cardiac: No Chest Pain, No Edema, No Syncope Abdominal/Gastrointestinal: Abdominal Pain (epigastric pain), No Nausea, No Vomiting Genitourinary Symptoms: No Dysuria Musculoskeletal: No Back Pain, No Neck Pain Skin: No Rash Neurological: No Dizziness, No Focal Weakness, No Sensory Changes Psychological: No Symptoms Endocrine: No Symptoms All Other Systems: Reviewed and Negative - Past Medical History Pertinent Past Medical History: Yes Neurological History: No Pertinent History ENT History: Cataracts Cardiac History: Congestive Heart Failure, High Cholesterol, Hypertension, Other Respiratory History: CHF Endocrine Medical History: No Pertinent History Musculoskeletal History: Arthritis GI Medical History: No Pertinent History History: No Pertinent History Psycho-Social History: No Pertinent History Female Reproductive Disorders: Fibroids Other Medical History: anemia - Past Surgical History Past Surgical History: Yes Neuro Surgical History: No Pertinent History Cardiac: CABG Respiratory: No Pertinent History Gastrointestinal: No Pertinent History Genitourinary: No Pertinent History Musculoskeletal: No Pertinent History Female Surgical History: Hysterectomy, Lumpectomy - Social History Smoking Status: Never smoker Exposure to second hand smoke: Yes Drug Use: none Patient Lives Alone: No - Female History Hx Now: No - Nursing Vital Signs Nursing Vital Signs: Initial Vital Signs Temperature 98.6 F 01/20/19 09:22 Pulse Rate 78 01/20/19 09:22 Respiratory Rate 18 01/20/19 09:22 Blood Pressure 148/78 01/20/19 09:22 O2 Sat by Pulse Oximetry 90 L 01/20/19 09:22 Pain Scale Pain Intensity 0 - Physical Exam General Appearance: no apparent distress, alert Eye Exam: PERRL/EOMI, eyes nml inspection Ears, Nose, Throat Exam: normal ENT inspection, pharynx normal, moist mucous membranes Neck Exam: normal inspection, non-tender, supple, full range of motion Respiratory Exam: normal breath sounds, lungs clear, No respiratory distress Cardiovascular Exam: regular rate/rhythm, murmur (2/6 systolic ejection murmur) , capillary refill <2 sec Gastrointestinal/Abdomen Exam: soft, normal bowel sounds, No tenderness, No distention, No mass, No guarding, No ecchymosis, No pulsatile mass, No rebound, No hernia, No hepatomegaly, No organomegaly, No splenomegaly Back Exam: normal inspection, normal range of motion, No CVA tenderness, No vertebral tenderness Extremity Exam: normal inspection, normal range of motion, pelvis stable Neurologic Exam: alert, oriented x 3, cooperative, record label intern II-XII nml as tested, normal mood/affect, nml cerebellar function, sensation nml, No motor deficits Skin Exam: normal color, warm, dry SpO2 Interpretation: normal (90%) SpO2: 90 - Course Nursing assessment & vital signs reviewed: Yes EKG Interpreted by Me: RATE (64 bpm), Sinus Rhythm, Left [place] Deviation, Other ( EKG: Sinus arrhythmia, 64 beats per minute, left axis deviation, T-wave inversion in leads 1 and aVL,no acute ST or T wave changes, compared to May 16, 2017) - Radiology Exams Chest X-ray Interpretation: Discussed w/ radiologist (Chest x-ray:new patchy right infrahilar infiltrate versus atelectasis. Elsewhere the remains cardiomegaly with CABG, mitral valve calcifications, COPD, and by basilar effusions again left greater than right. Bony thorax is intact with osteopenia and degenerative changes) Ordered Tests: Active Orders 24 hr Category Date Time Status EKG-ER Only STAT Care 01/20/19 10:02 Active IV Insertion STAT Care 01/20/19 10:02 Active CHEST 1 VIEW (PORTABLE) Stat Exams 01/20/19 10:03 Completed AMYLASE Stat Lab 01/20/19 09:38 Completed CBC W DIFF Stat Lab 01/20/19 09:38 Completed CMP Stat Lab 01/20/19 09:38 Completed Glucose,Critical Care Urgent Lab 01/20/19 11:45 Completed LIPASE Stat Lab 01/20/19 09:38 Completed NT PRO BNP Stat Lab 01/20/19 09:38 Completed TROPONIN Q3H Lab 01/20/19 09:38 Completed TROPONIN Q3H Lab 01/20/19 13:15 Ordered TROPONIN Q3H Lab 01/20/19 16:15 Ordered TROPONIN Q3H Lab 01/20/19 19:15 Ordered TROPONIN Q3H Lab 01/20/19 22:15 Ordered UA W/RFX UR CULTURE Stat Lab 01/20/19 10:02 Uncollected Medication Summary Discontinued Medications Generic Name Dose Route Start Last Admin Trade Name Jm PRN Reason Stop Dose Admin Dextrose 25 ml 01/20/19 11:54 D50w 50 Ml Abboject IV 01/20/19 11:55 STAT ONE Dextrose Confirm 01/20/19 11:57 D50w 50 Ml Abboject Administered 01/20/19 11:58 Dose 50 ml IV .STK-MED ONE Ondansetron HCl 4 mg 01/20/19 10:02 01/20/19 10:12 Zofran 4 Mg/2 Ml Vial IV 01/20/19 10:03 4 mg STAT ONE Administration Ondansetron HCl Confirm 01/20/19 10:11 Zofran 4 Mg/2 Ml Vial Administered 01/20/19 10:12 Dose 4 mg .ROUTE .STK-MED ONE Lab/Rad Data: Laboratory Result Diagrams 01/20/19 09:38 01/20/19 09:38 Laboratory Results 01/20/19 01/20/19 01/20/19 Range/Units 11:45 09:38 09:38 WBC (4.0-10.5) K/mm3 RBC (4.1-5.4) M/mm3 Hgb (12.0-16.0) gm/dl Hct (35-47) % MCV (78-100) fl MCH (26-32) pg MCHC (32-36) g/dl RDW (11.5-14.0) % Plt Count (150-450) K/mm3 MPV (6-9.5) fl Gran % (36.0-66.0) % Eos # (Auto) (0-0.5) Absolute Lymphs (auto) (1.0-4.6) Absolute Monos (auto) (0.0-1.3) Lymphocytes % (24.0-44.0) % Monocytes % (0.0-12.0) % Eosinophils % (0.00-5.0) % Basophils % (0.0-0.4) % Absolute Granulocytes (1.4-6.9) Basophils # (0-0.4) Sodium (137-145) mmol/L Potassium (3.5-5.1) mmol/L Chloride (98-107) mmol/L Carbon Dioxide (22-30) mmol/L Anion Gap (5-15) MEQ/L BUN (7-17) mg/dL Creatinine (0.52-1.04) mg/dL Estimated GFR ML/MIN Glucose 57 L (74-106) mg/dL Calcium (8.4-10.2) mg/dL Total Bilirubin (0.2-1.3) mg/dL AST (14-36) U/L ALT (0-35) U/L Alkaline Phosphatase (38-126) U/L Troponin I 0.515 H* (0.000-0.034) ng/mL NT-Pro-B Natriuret Pep 41322 H (0-1800) pg/mL Serum Total Protein (6.3-8.2) g/dL Albumin (3.5-5.0) g/dL Amylase (30-110) U/L Lipase (23-300) U/L 01/20/19 01/20/19 Range/Units 09:38 09:38 WBC 7.6 (4.0-10.5) K/mm3 RBC 4.21 (4.1-5.4) M/mm3 Hgb 12.9 (12.0-16.0) gm/dl Hct 41.8 (35-47) % MCV 99.3 (78-100) fl MCH 30.6 (26-32) pg MCHC 30.9 L (32-36) g/dl RDW 15.0 H (11.5-14.0) % Plt Count 233 (150-450) K/mm3 MPV 11.1 H (6-9.5) fl Gran % 66.8 H (36.0-66.0) % Eos # (Auto) 0.05 (0-0.5) Absolute Lymphs (auto) 1.68 (1.0-4.6) Absolute Monos (auto) 0.75 (0.0-1.3) Lymphocytes % 22.2 L (24.0-44.0) % Monocytes % 9.9 (0.0-12.0) % Eosinophils % 0.7 (0.00-5.0) % Basophils % 0.4 (0.0-0.4) % Absolute Granulocytes 5.07 (1.4-6.9) Basophils # 0.03 (0-0.4) Sodium 143 (137-145) mmol/L Potassium 3.8 (3.5-5.1) mmol/L Chloride 93 L (98-107) mmol/L Carbon Dioxide 36 H (22-30) mmol/L Anion Gap 17.4 H (5-15) MEQ/L BUN 27 H (7-17) mg/dL Creatinine 0.98 (0.52-1.04) mg/dL Estimated GFR 57.1 ML/MIN Glucose 58 L (74-106) mg/dL Calcium 10.1 (8.4-10.2) mg/dL Total Bilirubin 1.50 H (0.2-1.3) mg/dL AST 34 (14-36) U/L ALT 23 (0-35) U/L Alkaline Phosphatase 89 (38-126) U/L Troponin I (0.000-0.034) ng/mL NT-Pro-B Natriuret Pep (0-1800) pg/mL Serum Total Protein 8.0 (6.3-8.2) g/dL Albumin 4.2 (3.5-5.0) g/dL Amylase 75 (30-110) U/L Lipase 112 (23-300) U/L - Progress Progress: improved Progress Note: 01/20/19 11:49 88year-old white female initially she arrives with complaint that she's been having heartburn for 2 days. She now states that she has been having vomiting and doesn't really have heartburn and feel that she was throwing up into her esophagus. Unfortunately however patient has an elevated troponin of 0.515 EKG does not show acute changes. I will contact Dr. Islas. Patient has apparently taken her aspirin 325 mg orally already today - Departure Referrals: RIK GARDNER [Primary Care Provider] - 01/20/19 11:52 I've discussed the patient's case with Dr. Islas. He states that we can place patient on observation and go ahead and obtain a consult with Dr. Massey. 01/20/19 11:[address] Thapa he will check in on the patient. Patient has already taken aspirin. Patient did have a blood sugar around 57 I've asked them to give her one half amp of D50. - Departure Departure Disposition: Observation Clinical Impression: Shortness of breath Chest pain Qualifiers: Chest pain type: unspecified Qualified Code(s): R07.9 - Chest pain, unspecified Condition: Fair Critical Care Time: No Referrals: KAYLA ISLAS MD [Primary Care Provider] -
[2019-01-20] MEDS ORDERED: Zofran 4 MG/2 ML VIAL ONE (10:11)
[2019-01-20 10:25] LABS: BASOPHIL % 0.4 % (0.0-0.4); Basophil (Absolute #) 0.03 (0-0.4); Eosinophil % 0.7 % (0.00-5.0); Eosinophil (Absolute #) 0.05 (0-0.5); Granulocyte Absolute (ANC) 5.07 (1.4-6.9); Granulocytes % 66.8 % (36.0-66.0); Hematocrit 41.8 % (35-47); Hemoglobin 12.9 gm/dl (12.0-16.0); Lymphocyte (Absolute #) 1.68 (1.0-4.6); Lymphocytes % 22.2 % (24.0-44.0); Mean Cell Volume 99.3 fl (78-100); Mean Corpuscular Hemoglobin 30.6 pg (26-32); Mean Corpuscular Hgb Concent. 30.9 g/dl (32-36); Mean Platelet Volume 11.1 fl (6-9.5); Monocyte (Absolute #) 0.75 (0.0-1.3); Monocytes % 9.9 % (0.0-12.0); Platelet Count 233 K/mm3 (150-450); Red Blood Count 4.21 M/mm3 (4.1-5.4); White Blood Count 7.6 K/mm3 (4.0-10.5)
[2019-01-20 10:33] LABS: ALBUMIN 4.2 g/dL (3.5-5.0); ANION GAP 17.4 MEQ/L (5-15); BILIRUBIN,TOTAL 1.5 mg/dL (0.2-1.3); Calcium 10.1 mg/dL (8.4-10.2); Creatinine 1 0.98 mg/dL (0.52-1.04); Potassium 3.8 mmol/L (3.5-5.1)
--- NOTE | 2019-01-20 10:34 | XRAY ---
Indication: Cough. Comparison: May 18, 2017. Portable chest demonstrates new patchy right infrahilar infiltrate versus atelectasis. Elsewhere there remains cardiomegaly with CABG, mitral valve calcifications, COPD, and bibasilar effusions again left greater than right. Bony thorax intact again with osteopenia and degenerative changes.
[2019-01-20] MEDS ORDERED: D50W 50 ml Abboject IV ONE ×2 (11:54→11:57)
[2019-01-20] MEDS ORDERED: Zofran 4 MG/2 ML VIAL IV PRN (13:56)
[2019-01-20] MEDS ORDERED: Ecotrin 325 MG PO SCH (22:00)
[2019-01-20] MEDS ORDERED: Lopressor 50 MG PO SCH (22:00)
[2019-01-20] MEDS ORDERED: ULTRAM 50 MG PO SCH (22:00)
[2019-01-20] MEDS ORDERED: DIAZEPAM 10 MG PO SCH (22:00)
[2019-01-20] MEDS ORDERED: Valium 5 MG PO SCH (22:00)
[2019-01-20] MEDS ORDERED: Klor Con 10 MEQ PO SCH (22:00)
[2019-01-21 05:50] LABS: BASOPHIL % 0.6 % (0.0-0.4); Basophil (Absolute #) 0.03 (0-0.4); Eosinophil % 0.8 % (0.00-5.0); Eosinophil (Absolute #) 0.04 (0-0.5); Granulocyte Absolute (ANC) 2.83 (1.4-6.9); Granulocytes % 56.4 % (36.0-66.0); Hematocrit 36.5 % (35-47); Hemoglobin 11.1 gm/dl (12.0-16.0); Lymphocyte (Absolute #) 1.44 (1.0-4.6); Lymphocytes % 28.7 % (24.0-44.0); Mean Cell Volume 99.2 fl (78-100); Mean Corpuscular Hgb Concent. 30.4 g/dl (32-36); Mean Platelet Volume 10.1 fl (6-9.5); Monocyte (Absolute #) 0.68 (0.0-1.3); Monocytes % 13.5 % (0.0-12.0); Platelet Count 189 K/mm3 (150-450); Red Blood Count 3.68 M/mm3 (4.1-5.4)
[2019-01-21 05:58] LABS: Mean Corpuscular Hemoglobin 30.1 pg (26-32)
[2019-01-21 06:05] LABS: ALBUMIN 3.3 g/dL (3.5-5.0); ANION GAP 12.3 MEQ/L (5-15); Calcium 9.3 mg/dL (8.4-10.2); Creatinine 1 1.04 mg/dL (0.52-1.04); Potassium 4.3 mmol/L (3.5-5.1); Total Protein 6.3 g/dL (6.3-8.2)
--- NOTE | 2019-01-21 08:32 | CONS ---
CONSULT DATE: 01/20/2019 BRIEF HISTORY: This is an 88 year-old female who was seen because of choking and dysphagia with recurrent history of aortic stenosis. The patient apparently has been having problems swallowing even liquids and has not been able to take anything orally. She apparently had a change in her medications. She used to take olmesartan and was switched recently to Valsartan and thereafter has been having some reactions. The Valsartan has been held and she is better. She is due to have a swallowing study tomorrow. From the cardiac standpoint she is known to have aortic stenosis which is critical and has been offered ANDIE but she had refused. She I well aware about the consequences of critical aortic stenosis. She denies any chest pains. No significant shortness of breath. No syncopal attacks. CARDIAC RISK FACTORS: Positive for hypertension. No diabetes. She does not smoke. FAMILY HISTORY: Negative for premature coronary artery disease. REVIEW OF SYSTEMS: TUNNEL HEADING INSPECTOR: There is no history of stroke or seizures. RESPIRATORY: Occasional cough but no hemoptysis. GI: She has a history of hiatal hernia. : Negative for dysuria. No hematuria. PERIPHERAL VASCULAR: No history of deep venous thrombosis or claudication. PAST SURGICAL HISTORY: Hysterectomy. Lumpectomy. Tonsillectomy. MEDICATIONS: Aspirin, Bumex, diazepam, hydrochlorothiazide, metoprolol, fish oil, potassium, sertraline, tramadol. Valsartan which is held. SOCIAL HISTORY: She lives with her . She has no significant alcohol intake. PHYSICAL EXAMINATION: Blood pressure is 140/78, respirations about 18. GENERAL: The patient is an elderly female who is frail, thin, who is not in any form of distress and conversational. HEENT: Slightly pale conjunctivae. NECK: No obvious JVD. There is trace murmur heard in the carotids. CHEST: The breath sounds are harsh with some crackles in the bases. CARDIAC: Heart tones are normal. The rhythm is regular. There is a grade 3/6 high pitch systolic ejection murmur that is maximum in the right parasternal border. There is an S3 gallop. ABDOMEN: Soft with normal bowel sounds. EXTREMITIES: There is no significant edema. Decreased distal pulses. LAB DATA AND DIAGNOSTIC TESTS: The EKG shows sinus rhythm with changes of an old anteroseptal myocardial infarction and ST-T changes secondary to left ventricular hypertrophy and/or ischemia. IMPRESSION: 1) In essence the patient's GI symptoms may be related to some side effects from her current change in medications, seems to be better after this had been stopped. 2) Critical aortic stenosis. The patient has refused any cardiac intervention. 3) Hypertension. Continue current medical regimen. 4) I agree with swallowing study to determine etiology of dysphagia.
--- NOTE | 2019-01-21 09:42 | XRAY ---
Indication: Difficulty swallowing. Single contrast esophagram performed in the upright position. Patient ingested barium without miss swallow or aspiration. The mid to proximal esophagus is normal in course and caliber without filling defect. Distal esophagus near the GE junction demonstrates tapering (birds beak sign) with initially no barium passing through. Tiny amount of barium eventually passed into the stomach. Findings favor achalasia. Moderate amount of residual barium remains in the proximal esophagus. Impression: Abnormal tapering of the distal esophagus with tiny amount of barium passing through favoring achalasia. Approximately 0.4 minute fluoroscopy used.
[2019-01-21] MEDS ORDERED: ZOLOFT 50 MG TABLET PO SCH (10:00)
[2019-01-21] MEDS ORDERED: FISH OIL PO SCH (10:00)
[2019-01-21] MEDS ORDERED: FISH OIL 1,000 MG CAPSULE PO SCH (10:00)
[2019-01-21] MEDS ORDERED: OMEGA PO SCH (10:00)
[2019-01-21] MEDS ORDERED: hydroDIURIL 25 MG PO SCH (10:00)
[2019-01-21] MEDS ORDERED: BUMEX 1 MG PO SCH (10:00)
[2019-01-21] MEDS ORDERED: FATTY ACIDS PO SCH (10:00)
[2019-01-21] MEDS ORDERED: NON-FORMULARY ITEM (Bumetanide [Bumex] 2 MG) PO SCH (10:00)
--- NOTE | 2019-01-21 12:51 | PCM.HP ---
History of Present Illness - Chief Complaint Chief Complaint: Shortness of Breath, Chest pain, Vomiting for 3 days History of Present Illness: is a 88 year old female. - Review of Systems Constitutional: No Fever, No Chills Eyes: No Symptoms Ears, Nose, & Throat: No Symptoms Respiratory: No Cough, No Short Of Breath Cardiac: No Chest Pain, No Edema, No Syncope Abdominal/Gastrointestinal: Abdominal Pain, Nausea, Vomiting, No Diarrhea Genitourinary Symptoms: No Dysuria Musculoskeletal: No Back Pain, No Neck Pain Skin: No Rash Neurological: No Dizziness, No Focal Weakness, No Sensory Changes Psychological: No Symptoms Endocrine: No Symptoms Hematologic/Lymphatic: No Symptoms Immunological/Allergic: No Symptoms Medications & Allergies Home Medications: Home Medication List Aspirin 325 mg PO HS 04/15/15 [History Confirmed 01/20/19] diazePAM [Diazepam] 10 mg PO QHS 04/15/15 [History Confirmed 01/20/19] Bumetanide [Bumex] 2 mg PO DAILY #30 tablet 05/21/17 [Rx Confirmed 01/20/19] Metoprolol Tartrate 50 mg [Lopressor 50 MG] 50 mg PO BID #60 tablet [Rx Confirmed 01/20/19] Hydrochlorothiazide 25 mg [hydroDIURIL 25 MG] 12.5 mg PO DAILY 01/20/19 [ History Confirmed 01/20/19] Ivel-3 Fatty Acids/Fish Oil [Ivel-3 1,000 mg Softgel] 1 cap PO DAILY 01/20/19 [History Confirmed 01/20/19] Potassium Chloride 10 Meq Tab* [Klor Con 10 MEQ] 10 meq PO BID 01/20/19 [ History Confirmed 01/20/19] Sertraline HCl 50 mg [Zoloft 50 mg Tablet] 50 mg PO DAILY 01/20/19 [History Confirmed 01/20/19] Tramadol HCl 50 mg [Ultram 50 mg] 50 mg PO HS 01/20/19 [History Confirmed 01/20/19] Valsartan 160 mg PO HS 01/20/19 [History Confirmed 01/20/19] Allergies/Adverse Reactions: Allergies Allergy/AdvReac Type Severity Reaction Status Date / Time Sulfa (Sulfonamide Allergy Verified 01/01/17 17:58 Antibiotics) - Past Medical History Past Medical History: Yes Neurological History: No Pertinent History ENT History: Cataracts Cardiac History: Congestive Heart Failure, High Cholesterol, Hypertension, Other Respiratory History: CHF Endocrine Medical History: No Pertinent History Musculoskelatal History: Arthritis GI Medical History: No Pertinent History History: No Pertinent History Pyscho-Social History: No Pertinent History Reproductive Disorders: No Pertinent History Comment: anemia - Female History Are you now?: No - Past Surgical History Past Surgical History: Yes Neuro Surgical History: No Pertinent History Cardiac History: CABG Respiratory Surgery: No Pertinent History GI Surgical History: Appendectomy Genitourinary Surgical Hx: No Pertinent History Musculskeletal Surgical Hx: No Pertinent History Female Surgical History: Hysterectomy - Social History Smoking Status: Former smoker Exposure to second hand smoke: Yes Alcohol: None Drug Use: none - Physical Exam Vital Signs: Vital Signs - 24 hr Temp Pulse Resp BP Pulse Ox 01/21/19 11:00 98.3 F 53 L 22 109/54 99 01/21/19 07:00 98 F 52 L 14 101/50 98 01/21/19 03:59 97.9 F 55 L 18 115/55 95 01/20/19 23:34 97.8 F 60 19 118/58 94 L 01/20/19 20:05 98.1 F 75 17 133/63 97 01/20/19 20:00 97 01/20/19 17:26 97.8 F 70 21 113/54 98 01/20/19 14:56 70 18 98 01/20/19 14:25 97.5 F 75 18 127/86 98 01/20/19 13:26 97.5 F 75 20 127/86 98 Oxygen-Last 24 hours O2 Percentage 2 Liters = 28% O2 Percentage 2 Liters = 28% O2 Percentage 2 Liters = 28% O2 Percentage 2 Liters = 28% O2 Percentage 2 Liters = 28% O2 Percentage 2 Liters = 28% O2 Percentage 2 Liters = 28% Oxygen Flowrate (L/min)-RT 2 General Appearance: no apparent distress, alert Neurologic Exam: alert, oriented x 3, cooperative, normal mood/affect, nml cerebellar function, nml station & gait, sensation nml, No motor deficits Eye Exam: PERRL/EOMI, eyes nml inspection Ears, Nose, Throat Exam: normal ENT inspection, TMs normal, pharynx normal, moist mucous membranes Neck Exam: normal inspection, non-tender, supple, full range of motion Respiratory Exam: normal breath sounds, lungs clear, No respiratory distress Cardiovascular Exam: regular rate/rhythm, normal heart sounds, normal peripheral pulses Gastrointestinal/Abdomen Exam: soft, normal bowel sounds, No tenderness, No mass Back Exam: normal inspection, normal range of motion, No CVA tenderness, No vertebral tenderness Extremity Exam: normal inspection, normal range of motion, pelvis stable Skin Exam: normal color, warm, dry, No rash Lymphatic Exam: No adenopathy Results - Labs Lab/Micro Results: Accuchecks Date 01/21/19 Date 01/20/19 Time 07:30 Time 16:30 Accucheck Value: 71 Accucheck Value: 95 Accucheck Value: 106 Lab Results-Last 24 Hours 01/20/19 01/20/19 01/20/19 Range/Units 10:00 13:30 16:20 WBC (4.0-10.5) K/mm3 RBC (4.1-5.4) M/mm3 Hgb (12.0-16.0) gm/dl Hct (35-47) % MCV (78-100) fl MCH (26-32) pg MCHC (32-36) g/dl RDW (11.5-14.0) % Plt Count (150-450) K/mm3 MPV (6-9.5) fl Gran % (36.0-66.0) % Eos # (Auto) (0-0.5) Absolute Lymphs (auto) (1.0-4.6) Absolute Monos (auto) (0.0-1.3) Lymphocytes % (24.0-44.0) % Monocytes % (0.0-12.0) % Eosinophils % (0.00-5.0) % Basophils % (0.0-0.4) % Absolute Granulocytes (1.4-6.9) Basophils # (0-0.4) Sodium (137-145) mmol/L Potassium (3.5-5.1) mmol/L Chloride (98-107) mmol/L Carbon Dioxide (22-30) mmol/L Anion Gap (5-15) MEQ/L BUN (7-17) mg/dL Creatinine (0.52-1.04) mg/dL Estimated GFR ML/MIN Glucose (74-106) mg/dL Hemoglobin A1c 4.93 (4.5-6.0) % Calcium (8.4-10.2) mg/dL Total Bilirubin (0.2-1.3) mg/dL AST (14-36) U/L ALT (0-35) U/L Alkaline Phosphatase (38-126) U/L Troponin I 0.383 H* 0.349 H* (0.000-0.034) ng/mL Serum Total Protein (6.3-8.2) g/dL Albumin (3.5-5.0) g/dL 01/20/19 01/20/19 01/21/19 Range/Units 19:15 22:45 05:30 WBC 5.0 (4.0-10.5) K/mm3 RBC 3.68 L (4.1-5.4) M/mm3 Hgb 11.1 L (12.0-16.0) gm/dl Hct 36.5 (35-47) % MCV 99.2 (78-100) fl MCH 30.1 (26-32) pg MCHC 30.4 L (32-36) g/dl RDW 15.0 H (11.5-14.0) % Plt Count 189 (150-450) K/mm3 MPV 10.1 H (6-9.5) fl Gran % 56.4 (36.0-66.0) % Eos # (Auto) 0.04 (0-0.5) Absolute Lymphs (auto) 1.44 (1.0-4.6) Absolute Monos (auto) 0.68 (0.0-1.3) Lymphocytes % 28.7 (24.0-44.0) % Monocytes % 13.5 H (0.0-12.0) % Eosinophils % 0.8 (0.00-5.0) % Basophils % 0.6 (0.0-0.4) % Absolute Granulocytes 2.83 (1.4-6.9) Basophils # 0.03 (0-0.4) Sodium (137-145) mmol/L Potassium (3.5-5.1) mmol/L Chloride (98-107) mmol/L Carbon Dioxide (22-30) mmol/L Anion Gap (5-15) MEQ/L BUN (7-17) mg/dL Creatinine (0.52-1.04) mg/dL Estimated GFR ML/MIN Glucose (74-106) mg/dL Hemoglobin A1c (4.5-6.0) % Calcium (8.4-10.2) mg/dL Total Bilirubin (0.2-1.3) mg/dL AST (14-36) U/L ALT (0-35) U/L Alkaline Phosphatase (38-126) U/L Troponin I 0.349 H* 0.373 H* (0.000-0.034) ng/mL Serum Total Protein (6.3-8.2) g/dL Albumin (3.5-5.0) g/dL 01/21/19 Range/Units 05:30 WBC (4.0-10.5) K/mm3 RBC (4.1-5.4) M/mm3 Hgb (12.0-16.0) gm/dl Hct (35-47) % MCV (78-100) fl MCH (26-32) pg MCHC (32-36) g/dl RDW (11.5-14.0) % Plt Count (150-450) K/mm3 MPV (6-9.5) fl Gran % (36.0-66.0) % Eos # (Auto) (0-0.5) Absolute Lymphs (auto) (1.0-4.6) Absolute Monos (auto) (0.0-1.3) Lymphocytes % (24.0-44.0) % Monocytes % (0.0-12.0) % Eosinophils % (0.00-5.0) % Basophils % (0.0-0.4) % Absolute Granulocytes (1.4-6.9) Basophils # (0-0.4) Sodium 138 (137-145) mmol/L Potassium 4.3 (3.5-5.1) mmol/L Chloride 91 L (98-107) mmol/L Carbon Dioxide 39 H (22-30) mmol/L Anion Gap 12.3 (5-15) MEQ/L BUN 27 H (7-17) mg/dL Creatinine 1.04 (0.52-1.04) mg/dL Estimated GFR 53.3 ML/MIN Glucose 71 L (74-106) mg/dL Hemoglobin A1c (4.5-6.0) % Calcium 9.3 (8.4-10.2) mg/dL Total Bilirubin 1.00 (0.2-1.3) mg/dL AST 27 (14-36) U/L ALT 18 (0-35) U/L Alkaline Phosphatase 60 (38-126) U/L Troponin I (0.000-0.034) ng/mL Serum Total Protein 6.3 (6.3-8.2) g/dL Albumin 3.3 L (3.5-5.0) g/dL Accuchecks Date 01/21/19 Date 01/20/19 Time 07:30 Time 16:30 Accucheck Value: 71 Accucheck Value: 95 Accucheck Value: 106 - Radiology Impressions Radiology Exams & Impressions: Radiology Procedures Category Date Time Status BARIUM SWALLOW ESOPHOGRAM Urgent Exams 01/21/19 09:03 Completed CHEST 1 VIEW (PORTABLE) Stat Exams 01/20/19 10:03 Completed - Other Procedures and Tests Respiratory Therapy 01/20/19 14:55 Oxygen NASAL CANNULA 2 lpm 01/20/19 15:02 Respiratory Therapy Assessment DAILY Assessment/Plan (1) Achalasia of esophagus Current Visit: Yes Status: Acute Assessment & Plan: will get Dr solitario on consult for EGD. Chief Complaint Diagnosis Shortness of Breath, Chest pain, Vomiting Allergies Allergy/AdvReac Type Severity Reaction Status Date / Time Sulfa (Sulfonamide Allergy Verified 01/01/17 17:58 Antibiotics) Vital Signs (Last 24 hours) Temp Pulse Resp BP Pulse Ox 01/21/19 11:00 98.3 F 53 L 22 109/54 99 01/21/19 07:00 98 F 52 L 14 101/50 98 01/21/19 03:59 97.9 F 55 L 18 115/55 95 01/20/19 23:34 97.8 F 60 19 118/58 94 L 01/20/19 20:05 98.1 F 75 17 133/63 97 01/20/19 20:00 97 01/20/19 17:26 97.8 F 70 21 113/54 98 01/20/19 14:56 70 18 98 01/20/19 14:25 97.5 F 75 18 127/86 98 01/20/19 13:26 97.5 F 75 20 127/86 98 Home Medications Medication Instructions Recorded Confirmed Last Taken Type Hydrochlorothiazide 25 mg 12.5 mg PO DAILY 01/20/19 01/20/19 Unknown History [hydroDIURIL 25 MG] Ivel-3 Fatty Acids/Fish Oil 1 cap PO DAILY 01/20/19 01/20/19 Unknown History [Ivel-3 1,000 mg Softgel] Potassium Chloride 10 Meq Tab* 10 meq PO BID 01/20/19 01/20/19 01/20/19 History [Klor Con 10 MEQ] Sertraline HCl 50 mg [Zoloft 50 50 mg PO DAILY 01/20/19 01/20/19 Unknown History mg Tablet] Tramadol HCl 50 mg [Ultram 50 50 mg PO HS 01/20/19 01/20/19 01/19/19 History mg] Valsartan 160 mg PO HS 01/20/19 01/20/19 01/19/19 History Current Medications Generic Name Dose Route Start Last Admin Trade Name Freq PRN Reason Stop Dose Admin Aspirin 325 mg 01/20/19 22:00 01/20/19 21:28 Ecotrin 325 Mg PO 02/19/19 21:59 325 mg HS MARCELLUS Administration Bumetanide 2 mg 01/21/19 10:00 Bumex 1 Mg PO 02/20/19 09:59 DAILY MARCELLUS Diazepam 10 mg 01/20/19 22:00 01/20/19 21:28 Valium 5 Mg PO 02/19/19 21:59 10 mg HS MARCELLUS Administration Fish Oil 1,000 mg 01/21/19 10:00 Fish Oil 1,000 Mg Capsule PO 02/20/19 09:59 DAILY MARCELLUS Hydrochlorothiazide 12.5 mg 01/21/19 10:00 Hydrodiuril 25 Mg PO 02/20/19 09:59 DAILY MARCELLUS Metoprolol Tartrate 50 mg 01/20/19 22:00 01/20/19 21:28 Lopressor 50 Mg PO 02/19/19 21:59 50 mg BID MARCELLUS Administration Ondansetron HCl 4 mg 01/20/19 13:56 Zofran 4 Mg/2 Ml Vial IV 02/19/19 13:55 Q6H PRN PRN NAUSEA/VOMITING Potassium Chloride 10 meq 01/20/19 22:00 01/20/19 21:28 Klor Con 10 Meq PO 02/19/19 21:59 10 meq BID MARCELLUS Administration Sertraline HCl 50 mg 01/21/19 10:00 Zoloft 50 Mg Tablet PO 02/20/19 09:59 DAILY MARCELLUS Tramadol HCl 50 mg 01/20/19 22:00 01/20/19 21:28 Ultram 50 Mg PO 02/19/19 21:59 50 mg HS MARCELLUS Administration Discontinued Medications Generic Name Dose Route Start Last Admin Trade Name Freq PRN Reason Stop Dose Admin Dextrose 25 ml 01/20/19 11:54 01/20/19 12:00 D50w 50 Ml Abboject IV 01/20/19 11:55 25 ml STAT ONE Administration Dextrose Confirm 01/20/19 11:57 D50w 50 Ml Abboject Administered 01/20/19 11:58 Dose 50 ml IV .STK-MED ONE Ondansetron HCl 4 mg 01/20/19 10:02 01/20/19 10:12 Zofran 4 Mg/2 Ml Vial IV 01/20/19 10:03 4 mg STAT ONE Administration Ondansetron HCl Confirm 01/20/19 10:11 Zofran 4 Mg/2 Ml Vial Administered 01/20/19 10:12 Dose 4 mg .ROUTE .STK-MED ONE Intake & Output (Last 24 hours) 01/19/19 01/20/19 01/21/19 01/22/19 11:59 11:59 11:59 11:59 Intake Total 980 Balance 980 Weight 48.081 kg 57.8 kg Laboratory Results (Last 24 hours) 01/21/19 01/21/19 01/20/19 05:30 05:30 22:45 WBC 5.0 RBC 3.68 L Hgb 11.1 L Hct 36.5 MCV 99.2 MCH 30.1 MCHC 30.4 L RDW 15.0 H Plt Count 189 MPV 10.1 H Gran % 56.4 Eos # (Auto) 0.04 Absolute Lymphs (auto) 1.44 Absolute Monos (auto) 0.68 Lymphocytes % 28.7 Monocytes % 13.5 H Eosinophils % 0.8 Basophils % 0.6 Absolute Granulocytes 2.83 Basophils # 0.03 Sodium 138 Potassium 4.3 Chloride 91 L Carbon Dioxide 39 H Anion Gap 12.3 BUN 27 H Creatinine 1.04 Estimated GFR 53.3 Glucose 71 L Hemoglobin A1c Calcium 9.3 Total Bilirubin 1.00 AST 27 ALT 18 Alkaline Phosphatase 60 Troponin I 0.373 H* Serum Total Protein 6.3 Albumin 3.3 L 01/20/19 01/20/19 01/20/19 19:15 16:20 13:30 WBC RBC Hgb Hct MCV MCH MCHC RDW Plt Count MPV Gran % Eos # (Auto) Absolute Lymphs (auto) Absolute Monos (auto) Lymphocytes % Monocytes % Eosinophils % Basophils % Absolute Granulocytes Basophils # Sodium Potassium Chloride Carbon Dioxide Anion Gap BUN Creatinine Estimated GFR Glucose Hemoglobin A1c Calcium Total Bilirubin AST ALT Alkaline Phosphatase Troponin I 0.349 H* 0.349 H* 0.383 H* Serum Total Protein Albumin 01/20/19 10:00 WBC RBC Hgb Hct MCV MCH MCHC RDW Plt Count MPV Gran % Eos # (Auto) Absolute Lymphs (auto) Absolute Monos (auto) Lymphocytes % Monocytes % Eosinophils % Basophils % Absolute Granulocytes Basophils # Sodium Potassium Chloride Carbon Dioxide Anion Gap BUN Creatinine Estimated GFR Glucose Hemoglobin A1c 4.93 Calcium Total Bilirubin AST ALT Alkaline Phosphatase Troponin I Serum Total Protein Albumin Orders (Last 24 hours) Category Date Time Status Bedrest with BRP/BSC ROUTINE Activity 01/20/19 13:56 Active Accucheck ACHS Care 01/20/19 13:56 Active Call Admit Doctor for Orders ON ADMISSION Care 01/20/19 13:56 Active Code Status Order ROUTINE Care 01/20/19 13:56 Active IV Care Q6H Care 01/20/19 13:[address] in Observation ROUTINE Care 01/20/19 13:56 Active Telemetry q6h Care 01/20/19 13:56 Active Weight,Daily 0600 Care 01/20/19 13:56 Active Consult Cardiology ROUTINE Cons 01/20/19 13:56 Active Tomato Paste Maker/Discharge Plan Cons 01/20/19 14:53 Active Clear Liquid Diet 01/20/19 Dinner Completed NPO Diet 01/21/19 00:01 Active Nutritional Admission Screen once Diet 01/20/19 14:53 Active BARIUM SWALLOW ESOPHOGRAM Urgent Exams 01/21/19 09:03 Completed CBC W DIFF AM.LAB Lab 01/21/19 05:30 Completed CMP AM.LAB Lab 01/21/19 05:30 Completed TROPONIN Q3H Lab 01/20/19 13:30 Completed TROPONIN Q3H Lab 01/20/19 16:20 Completed TROPONIN Q3H Lab 01/20/19 19:15 Completed TROPONIN Q3H Lab 01/20/19 22:45 Completed Aspirin EC 325 mg [Ecotrin 325 MG] Med 01/20/19 22:00 Active 325 mg PO HS Bumetanide 1 mg [Bumex 1 mg] Med 01/21/19 10:00 Active 2 mg PO DAILY Dextrose 50%-Water Syringe [D50W 50 ml Abboject] Med 01/20/19 11:54 Discontinued 25 ml IV STAT ONE Dextrose 50%-Water Syringe [D50W 50 ml Abboject] Med 01/20/19 11:57 Discontinued 50 ml IV .STK-MED ONE Diazepam 5 mg [Valium 5 MG] Med 01/20/19 22:00 Active 10 mg PO HS Hydrochlorothiazide 25 mg [hydroDIURIL 25 MG] Med 01/21/19 10:00 Active 12.5 mg PO DAILY Metoprolol Tartrate 50 mg [Lopressor 50 MG] Med 01/20/19 22:00 Active 50 mg PO BID Ivel-3 Fatty Acids/Fish Oil [Fish Oil 1,000 mg Med 01/21/19 10:00 Active Capsule] 1,000 mg PO DAILY Ondansetron HCl 4 mg/2 ml [Zofran 4 MG/2 ML VIAL] Med 01/20/19 13:56 Active 4 mg IV Q6H PRN PRN Potassium Chloride 10 Meq Tab* [Klor Con 10 MEQ] Med 01/20/19 22:00 Active 10 meq PO BID Sertraline HCl 50 mg [Zoloft 50 mg Tablet] Med 01/21/19 10:00 Active 50 mg PO DAILY Tramadol HCl 50 mg [Ultram 50 mg] Med 01/20/19 22:00 Active 50 mg PO HS Oxygen NASAL CANNULA 2 lpm RT 01/20/19 14:55 Active Pulse Oximetry CONTINUOUS RT 01/20/19 13:56 Active RT Screen per Nursing Assess ONCE RT 01/20/19 14:53 Completed Respiratory Therapy Assessment DAILY RT 01/20/19 15:02 Active Respiratory Therapy Consult ROUTINE RT 01/20/19 13:56 Completed Patient Care Notes (Last 24 hours) 01/21/19 10:22 Nursing Note by Jo Doe Called the [facility] with results of barium swallow. Informed staff I was faxing over results. Holding medication and keeping patient NPO until Dr Morocho addresses the results of the study Initialized on 01/21/19 10:22 - END OF NOTE Code(s): K22.0 - ACHALASIA OF CARDIA (2) Chest pain Current Visit: Yes Status: Acute Qualifiers: Chest pain type: unspecified Qualified Code(s): R07.9 - Chest pain, unspecified Code(s): R07.9 - CHEST PAIN, UNSPECIFIED (3) Acute exacerbation of CHF (congestive heart failure) Current Visit: No Status: Acute Code(s): I50.9 - HEART FAILURE, UNSPECIFIED (4) Hx of aortic valve insufficiency Current Visit: No Status: Chronic Code(s): Z86.79 - PERSONAL HISTORY OF OTHER DISEASES OF THE CIRCULATORY SYSTEM
[2019-01-21] MEDS ORDERED: Sodium Chloride 0.9% 1000 ML 1,000 ML IV SCH (13:00)
--- NOTE | 2019-01-21 15:50 | XRAY ---
Indication: Difficulty swallowing. Multiple contiguous axial images obtained through the chest prior to and following 80 cc Isovue 370 contrast as ordered. Comparison: January 08, 2011. Heart again demonstrates CABG surgery with interval worsening cardiomegaly. Stable aortic valve and scattered coronary calcifications. Aorta remains mildly arteriosclerotic without dissection. 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 No pathologic mediastinal/hilar lymphadenopathy. Trace residual barium in the esophagus from esophagram performed earlier in the day. Esophagus is not abnormally distended. Examination of the lung parenchyma demonstrates new small bilateral pleural effusions with dependent atelectasis. New right middle lobe, lingula, and both lower lobe subsegmental atelectasis/scarring. Bony thorax intact again with minimal degenerative changes throughout the spine and sternotomy wires. CT abdomen reported separately. Impression: 1. Worsening cardiomegaly with new small bilateral effusions concerning for cardiac decompensation versus fluid overload. 2. Stable scattered arteriosclerotic disease including ascending aortic aneurysm. 3. Again incidental aortic valve calcifications and CABG surgery. CTDI 7.32
--- NOTE | 2019-01-21 16:02 | XRAY ---
Indication: Difficulty swallowing. Multiple contiguous axial images obtained through the abdomen and pelvis prior to and following 80 cc Isovue 370 contrast as ordered. No oral contrast administered for this exam. Radiopacity in the stomach and small bowel loops presumed from ingested medication/bismuth. Comparison: None. CT chest reported separately. There is dense barium from same day esophagram in the distal small bowel loops at the level of pelvis producing beam artifact. Stomach and bowel loops appear nonobstructed. Moderate fecal debris in the rectal vault. Rectum also demonstrates perirectal stranding, possible proctitis. Also circumferential thickened anus. Mild diffuse fatty appearing liver. Gallbladder normally distended with intraluminal sludge but no gallstones. Previous hysterectomy. Remaining liver, pancreas, spleen, adrenal glands, kidneys, ureters, and bladder appear unremarkable. Heavy scattered vascular calcifications. No AAA or pathologic retroperitoneal lymphadenopathy. Osseous structures demonstrate osteopenia, moderate multilevel lumbar degenerative spondylosis including 4-5 mm L4 spondylolisthesis. 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 No ventral or inguinal hernias. Impression: 1. Images through the pelvis limited due to beam artifact from residual dense barium. 2. Rectal impaction. Rectum also demonstrates perirectal stranding, possible proctitis. Also anal thickening. Correlate clinically. 3. Gallbladder sludge. Sonogram may yield further information. 4. Incidental fatty liver, osteopenia, multilevel degenerative spondylosis, grade 1 L4 spondylolisthesis, and levorotoscoliosis. CTDI 8.04
--- NOTE | 2019-01-21 16:14 | CONS ---
CONSULT DATE: 01/21/2019 HISTORY: An 88 year-old female patient of Dr. Morocho's apparently was having problems with dysphagia, not keeping things down. He did an upper GI study that showed high grade narrowing distal esophagus area. No gross irregular mass that radiology could determine so possible achalasia but mass could not be ruled out. CT scan of the chest is pending at this time. I was asked to see the patient. PAST MEDICAL HISTORY: Heart disease. High grade aortic stenosis according to the [employer]. The patient was not agreeable to having it treated. She had a prior coronary artery bypass graft in the past. Otherwise the patient has hypertension. Prior history of old myocardial infarction in the past. PAST SURGICAL HISTORY: Hysterectomy. Lumpectomy. Tonsillectomy. Coronary artery bypass graft in the past. MEDICATIONS: Includes aspirin, Bumex, diazepam, hydrochlorothiazide, metoprolol, fish oil, potassium, Sertraline, tramadol, Valsartan. ALLERGIES: SULFA. SOCIAL HISTORY: No alcohol abuse. She is a nonsmoker. REVIEW OF SYSTEMS: Fourteen systems reviewed per admission assessment and consultations on the chart. No chest pain or palpitations currently. PHYSICAL EXAMINATION: GENERAL: A chronically ill female. HEENT: Sclera nonicteric. NECK: No JVD. CHEST: Equal excursion, nonlabored breathing. CVS: Regular rhythm and pulse. ABDOMEN: Soft, nonrtender. No peritoneal signs. EXTREMITIES: No edema. NEURO: Alert, moving extremities grossly symmetrically. No localizing motor deficits currently. LAB DATA AND TESTS: Liver function tests okay. White count 5, hemoglobin 11.1, PLT 889,000. IMPRESSION: Dysphagia, high grade narrowing distal esophagus whether related to reflux, spasm, achalasia or some other neoplastic narrowing or stricture, I feel she would benefit from EGD possible biopsy, possible dilatation. The patient is not agreeable to the procedure at this time. She also had anesthesia speak to her. She would have to agree to temporarily suspend her DNR during the procedure. She is not agreeable to that. She is not agreeable to the procedure or other options. She understands risks of aspiration, pneumonia or mortality. She also was explained there is an option of transferring to another facility where radiology could consider placing guidewire and dilatation. She understands that even if upper scope was done at this time or unable to pass the scope past the narrowed area she might still need eventually radiologist to consider dilatation if we fail to do the procedure to pass the scope through the area at this time and could potentially try dilating the area. General risk of bleeding or infection, bowel injury or perforation which could be mortal. Possibly convert to open procedure or transfer to tertiary center for stent placement. She understands all the above but not limited to. At this time she is not agreeable to any surgical procedure, endoscopy at this time. Therefore will sign off. Suggest considering transferring to a facility for interventional radiologist to evaluate with dilator guidewire balloon. Otherwise will sign off at this time as she is not agreeing to endoscopy or surgical procedure at this point.
[2019-01-21 16:52] VITALS: BP 128/58; PULSE 60; O2SAT 98
--- NOTE | 2019-01-21 18:40 | PCM.DS ---
Discharge Summary Date of Admission: 01/20/19 13:10 Admitting Physician: KAYLA ISLAS Consults: Consults on Case 01/20/19 13:56 Consult Cardiology ROUTINE 01/21/19 14:50 Consult Surgery ROUTINE Primary Care Provider: KAYLA ISLAS Allergies Allergies Sulfa (Sulfonamide Antibiotics) Allergy (Verified 01/01/17 17:58) rash Hospital Summary - Hospital Course Hospital Course: Chief Complaint Diagnosis Shortness of Breath, Chest pain, Vomiting for 3 days Allergies Allergy/AdvReac Type Severity Reaction Status Date / Time Sulfa (Sulfonamide Allergy Verified 01/01/17 17:58 Antibiotics) Vital Signs (Last 24 hours) Temp Pulse Resp BP Pulse Ox 01/21/19 15:00 98.6 F 60 19 128/58 98 01/21/19 11:00 98.3 F 53 L 22 109/54 99 01/21/19 07:00 98 F 52 L 14 101/50 98 01/21/19 03:59 97.9 F 55 L 18 115/55 95 01/20/19 23:34 97.8 F 60 19 118/58 94 L 01/20/19 20:05 98.1 F 75 17 133/63 97 01/20/19 20:00 97 Home Medications Medication Instructions Recorded Confirmed Last Taken Type Hydrochlorothiazide 25 mg 12.5 mg PO DAILY 01/20/19 01/20/19 Unknown History [hydroDIURIL 25 MG] [place]-3 Fatty Acids/Fish Oil 1 cap PO DAILY 01/20/19 01/20/19 Unknown History [[place]-3 1,000 mg Softgel] Potassium Chloride 10 Meq Tab* 10 meq PO BID 01/20/19 01/20/19 01/20/19 History [Klor Con 10 MEQ] Sertraline HCl 50 mg [Zoloft 50 50 mg PO DAILY 01/20/19 01/20/19 Unknown History mg Tablet] Tramadol HCl 50 mg [Ultram 50 50 mg PO HS 01/20/19 01/20/19 01/19/19 History mg] Valsartan 160 mg PO HS 01/20/19 01/20/19 01/19/19 History Current Medications Generic Name Dose Route Start Last Admin Trade Name Freq PRN Reason Stop Dose Admin Aspirin 325 mg 01/20/19 22:00 01/20/19 21:28 Ecotrin 325 Mg PO 02/19/19 21:59 325 mg HS MARCELLUS Administration Bumetanide 2 mg 01/21/19 10:00 Bumex 1 Mg PO 02/20/19 09:59 DAILY MRACELLUS Diazepam 10 mg 01/20/19 22:00 01/20/19 21:28 Valium 5 Mg PO 02/19/19 21:59 10 mg HS MARCELLUS Administration Fish Oil 1,000 mg 01/21/19 10:00 Fish Oil 1,000 Mg Capsule PO 02/20/19 09:59 DAILY MARCELLUS Hydrochlorothiazide 12.5 mg 01/21/19 10:00 Hydrodiuril 25 Mg PO 02/20/19 09:59 DAILY MARCELLUS Sodium Chloride 1,000 mls @ 50 mls/hr 01/21/19 13:00 01/21/19 13:20 Sodium Chloride 0.9% 1000 Ml IV 02/20/19 12:59 50 mls/hr .Q20H MARCELLUS Administration Metoprolol Tartrate 50 mg 01/20/19 22:00 01/20/19 21:28 Lopressor 50 Mg PO 02/19/19 21:59 50 mg BID MARCELLUS Administration Ondansetron HCl 4 mg 01/20/19 13:56 Zofran 4 Mg/2 Ml Vial IV 02/19/19 13:55 Q6H PRN PRN NAUSEA/VOMITING Potassium Chloride 10 meq 01/20/19 22:00 01/20/19 21:28 Klor Con 10 Meq PO 02/19/19 21:59 10 meq BID MARCELLUS Administration Sertraline HCl 50 mg 01/21/19 10:00 Zoloft 50 Mg Tablet PO 02/20/19 09:59 DAILY MARCELLUS Tramadol HCl 50 mg 01/20/19 22:00 01/20/19 21:28 Ultram 50 Mg PO 02/19/19 21:59 50 mg HS MARCELLUS Administration Discontinued Medications Generic Name Dose Route Start Last Admin Trade Name Freq PRN Reason Stop Dose Admin Dextrose 25 ml 01/20/19 11:54 01/20/19 12:00 D50w 50 Ml Abboject IV 01/20/19 11:55 25 ml STAT ONE Administration Dextrose Confirm 01/20/19 11:57 D50w 50 Ml Abboject Administered 01/20/19 11:58 Dose 50 ml IV .STK-MED ONE Ondansetron HCl 4 mg 01/20/19 10:02 01/20/19 10:12 Zofran 4 Mg/2 Ml Vial IV 01/20/19 10:03 4 mg STAT ONE Administration Ondansetron HCl Confirm 01/20/19 10:11 Zofran 4 Mg/2 Ml Vial Administered 01/20/19 10:12 Dose 4 mg .ROUTE .STK-MED ONE Intake & Output (Last 24 hours) 01/19/19 01/20/19 01/21/19 01/22/19 11:59 11:59 11:59 11:59 Intake Total 980 0 Balance 980 0 Weight 48.081 kg 57.8 kg Laboratory Results (Last 24 hours) 01/21/19 01/21/19 01/20/19 05:30 05:30 22:45 WBC 5.0 RBC 3.68 L Hgb 11.1 L Hct 36.5 MCV 99.2 MCH 30.1 MCHC 30.4 L RDW 15.0 H Plt Count 189 MPV 10.1 H Gran % 56.4 Eos # (Auto) 0.04 Absolute Lymphs (auto) 1.44 Absolute Monos (auto) 0.68 Lymphocytes % 28.7 Monocytes % 13.5 H Eosinophils % 0.8 Basophils % 0.6 Absolute Granulocytes 2.83 Basophils # 0.03 Sodium 138 Potassium 4.3 Chloride 91 L Carbon Dioxide 39 H Anion Gap 12.3 BUN 27 H Creatinine 1.04 Estimated GFR 53.3 Glucose 71 L Calcium 9.3 Total Bilirubin 1.00 AST 27 ALT 18 Alkaline Phosphatase 60 Troponin I 0.373 H* Serum Total Protein 6.3 Albumin 3.3 L 01/20/19 19:15 WBC RBC Hgb Hct MCV MCH MCHC RDW Plt Count MPV Gran % Eos # (Auto) Absolute Lymphs (auto) Absolute Monos (auto) Lymphocytes % Monocytes % Eosinophils % Basophils % Absolute Granulocytes Basophils # Sodium Potassium Chloride Carbon Dioxide Anion Gap BUN Creatinine Estimated GFR Glucose Calcium Total Bilirubin AST ALT Alkaline Phosphatase Troponin I 0.349 H* Serum Total Protein Albumin Orders (Last 24 hours) Category Date Time Status Consult Surgery ROUTINE Cons 01/21/19 14:50 Completed NPO Diet 01/21/19 00:01 Active Discharge Routine Discharge 01/21/19 Ordered Discharge/Telephone Order Routine Discharge 01/21/19 Active ABDOMEN AND PELVIS W&WO CONTRA [CT] Urgent Exams 01/21/19 12:51 Completed BARIUM SWALLOW ESOPHOGRAM Urgent Exams 01/21/19 09:03 Completed CHEST W/WO CONTRAST [CT] Urgent Exams 01/21/19 12:51 Completed CBC W DIFF AM.LAB Lab 01/21/19 05:30 Completed CMP AM.LAB Lab 01/21/19 05:30 Completed TROPONIN Q3H Lab 01/20/19 19:15 Completed TROPONIN Q3H Lab 01/20/19 22:45 Completed Aspirin EC 325 mg [Ecotrin 325 MG] Med 01/20/19 22:00 Active 325 mg PO HS Bumetanide 1 mg [Bumex 1 mg] Med 01/21/19 10:00 Active 2 mg PO DAILY Diazepam 5 mg [Valium 5 MG] Med 01/20/19 22:00 Active 10 mg PO HS Hydrochlorothiazide 25 mg [hydroDIURIL 25 MG] Med 01/21/19 10:00 Active 12.5 mg PO DAILY Metoprolol Tartrate 50 mg [Lopressor 50 MG] Med 01/20/19 22:00 Active 50 mg PO BID NaCl 0.9% 1000 ml [Sodium Chloride 0.9% 1000 ML] 1,000 Med 01/21/19 13:00 Active ml IV 50 mls/hr [place]-3 Fatty Acids/Fish Oil [Fish Oil 1,000 mg Med 01/21/19 10:00 Active Capsule] 1,000 mg PO DAILY Potassium Chloride 10 Meq Tab* [Klor Con 10 MEQ] Med 01/20/19 22:00 Active 10 meq PO BID Sertraline HCl 50 mg [Zoloft 50 mg Tablet] Med 01/21/19 10:00 Active 50 mg PO DAILY Tramadol HCl 50 mg [Ultram 50 mg] Med 01/20/19 22:00 Active 50 mg PO HS Patient Care Notes (Last 24 hours) 01/21/19 17:33 Nursing Note by Nader,Jo patient left with family upon discharge Initialized on 01/21/19 17:33 - END OF NOTE 01/21/19 17:27 Nursing Note by Jo Doe pt sugar 61. given orange juice with sugar in it Initialized on 01/21/19 17:27 - END OF NOTE 01/21/19 10:22 Nursing Note by Jo Doe Called the [facility] with results of barium swallow. Informed staff I was faxing over results. Holding medication and keeping patient NPO until Dr Islas addresses the results of the study Initialized on 01/21/19 10:22 - END OF NOTE - Vitals & Intake/Output Vital Signs: Vital Signs Temperature 98.6 F 01/21/19 15:00 Pulse Rate 60 01/21/19 15:00 Respiratory Rate 19 01/21/19 15:00 Blood Pressure 128/58 01/21/19 15:00 O2 Sat by Pulse Oximetry 98 01/21/19 15:00 Oxygen-Last Documented O2 Percentage 2 Liters = 28% Intake & Output: Intake & Output 01/19/19 01/20/19 01/21/19 01/22/19 11:59 11:59 11:59 11:59 Intake Total 980 0 Balance 980 0 Weight 48.081 kg 57.8 kg - Lab Result Diagrams: 01/21/19 05:30 01/21/19 05:30 Lab Results-Last 24 Hrs: Accuchecks Date 01/21/19 Date 01/21/19 Date 01/21/19 Time 16:30 Time 11:30 Time 07:30 Accucheck Value: 61 Accucheck Value: 75 Accucheck Value: 71 Accucheck Value: 95 Lab Results-Last 24 Hours 01/20/19 01/20/19 01/21/19 Range/Units 19:15 22:45 05:30 WBC 5.0 (4.0-10.5) K/mm3 RBC 3.68 L (4.1-5.4) M/mm3 Hgb 11.1 L (12.0-16.0) gm/dl Hct 36.5 (35-47) % MCV 99.2 (78-100) fl MCH 30.1 (26-32) pg MCHC 30.4 L (32-36) g/dl RDW 15.0 H (11.5-14.0) % Plt Count 189 (150-450) K/mm3 MPV 10.1 H (6-9.5) fl Gran % 56.4 (36.0-66.0) % Eos # (Auto) 0.04 (0-0.5) Absolute Lymphs (auto) 1.44 (1.0-4.6) Absolute Monos (auto) 0.68 (0.0-1.3) Lymphocytes % 28.7 (24.0-44.0) % Monocytes % 13.5 H (0.0-12.0) % Eosinophils % 0.8 (0.00-5.0) % Basophils % 0.6 (0.0-0.4) % Absolute Granulocytes 2.83 (1.4-6.9) Basophils # 0.03 (0-0.4) Sodium (137-145) mmol/L Potassium (3.5-5.1) mmol/L Chloride (98-107) mmol/L Carbon Dioxide (22-30) mmol/L Anion Gap (5-15) MEQ/L BUN (7-17) mg/dL Creatinine (0.52-1.04) mg/dL Estimated GFR ML/MIN Glucose (74-106) mg/dL Calcium (8.4-10.2) mg/dL Total Bilirubin (0.2-1.3) mg/dL AST (14-36) U/L ALT (0-35) U/L Alkaline Phosphatase (38-126) U/L Troponin I 0.349 H* 0.373 H* (0.000-0.034) ng/mL Serum Total Protein (6.3-8.2) g/dL Albumin (3.5-5.0) g/dL 01/21/19 Range/Units 05:30 WBC (4.0-10.5) K/mm3 RBC (4.1-5.4) M/mm3 Hgb (12.0-16.0) gm/dl Hct (35-47) % MCV (78-100) fl MCH (26-32) pg MCHC (32-36) g/dl RDW (11.5-14.0) % Plt Count (150-450) K/mm3 MPV (6-9.5) fl Gran % (36.0-66.0) % Eos # (Auto) (0-0.5) Absolute Lymphs (auto) (1.0-4.6) Absolute Monos (auto) (0.0-1.3) Lymphocytes % (24.0-44.0) % Monocytes % (0.0-12.0) % Eosinophils % (0.00-5.0) % Basophils % (0.0-0.4) % Absolute Granulocytes (1.4-6.9) Basophils # (0-0.4) Sodium 138 (137-145) mmol/L Potassium 4.3 (3.5-5.1) mmol/L Chloride 91 L (98-107) mmol/L Carbon Dioxide 39 H (22-30) mmol/L Anion Gap 12.3 (5-15) MEQ/L BUN 27 H (7-17) mg/dL Creatinine 1.04 (0.52-1.04) mg/dL Estimated GFR 53.3 ML/MIN Glucose 71 L (74-106) mg/dL Calcium 9.3 (8.4-10.2) mg/dL Total Bilirubin 1.00 (0.2-1.3) mg/dL AST 27 (14-36) U/L ALT 18 (0-35) U/L Alkaline Phosphatase 60 (38-126) U/L Troponin I (0.000-0.034) ng/mL Serum Total Protein 6.3 (6.3-8.2) g/dL Albumin 3.3 L (3.5-5.0) g/dL Micro Results-Entire Visit: Accuchecks Date 01/21/19 Date 01/21/19 Date 01/21/19 Time 16:30 Time 11:30 Time 07:30 Accucheck Value: 61 Accucheck Value: 75 Accucheck Value: 71 Accucheck Value: 95 - Radiology Exams Ordered Rad Exams-Entire Visit: Radiology Procedures Category Date Time Status ABDOMEN AND PELVIS W&WO CONTRA [CT] Urgent Exams 01/21/19 12:51 Completed BARIUM SWALLOW ESOPHOGRAM Urgent Exams 01/21/19 09:03 Completed CHEST 1 VIEW (PORTABLE) Stat Exams 01/20/19 10:03 Completed CHEST W/WO CONTRAST [CT] Urgent Exams 01/21/19 12:51 Completed - Procedures and Test Procedures and Tests throughout Hospitalization: Therapy Orders & Screens 01/20/19 13:56 Respiratory Therapy Consult ROUTINE Comment: Reason For Exam: 01/20/19 14:53 RT Screen per Nursing Assess ONCE Comment: Protocol Order Physician Instructions: Greater than 3 points order RT Admission Screen Reason For Exam: Triggered on Admission Diagnosis: Shortness of Breath, Chest pain, Vomiting Diagnosis: Shortness of Breath, Chest pain, Vomiting Pneumonia: No Home O2: Yes Asthma: No CHF: Yes Home CPAP/BIPAP: No Home Nebs/MDI: No Total Points: 8 01/20/19 14:55 Oxygen NASAL CANNULA 2 lpm Comment: Diagnosis: Shortness of Breath, Chest pain, Vomiting 01/20/19 15:02 Respiratory Therapy Assessment DAILY Comment: Diagnosis: Shortness of Breath, Chest pain, Vomiting Discharge Exam General Appearance: no apparent distress, alert Neurologic Exam: alert, oriented x 3, cooperative, normal mood/affect, nml cerebellar function, sensation nml, No motor deficits Eye Exam: PERRL, EOMI, eyes nml inspection Ears, Nose, Throat Exam: normal ENT inspection, pharynx normal, moist mucous membranes Neck Exam: normal inspection, non-tender, supple, full range of motion Respiratory Exam: normal breath sounds, lungs clear, No respiratory distress Cardiovascular Exam: regular rate/rhythm, normal heart sounds Gastrointestinal/Abdomen Exam: soft, No tenderness, No mass Pelvic Exam: deferred Rectal Exam: deferred Back Exam: normal inspection, normal range of motion, No CVA tenderness, No vertebral tenderness Extremity Exam: normal inspection, normal range of motion Skin Exam: normal color, warm, dry Final Diagnosis/Problem List - Final Discharge Diagnosis/Problem (1) Achalasia of esophagus Current Visit: Yes Status: Acute Assessment & Plan: due high anesthetic risk, No EGD done. Patient also donot want any invasive procedure. Code(s): K22.0 - ACHALASIA OF CARDIA (2) Chest pain Current Visit: Yes Status: Resolved Code(s): R07.9 - CHEST PAIN, UNSPECIFIED (3) Acute exacerbation of CHF (congestive heart failure) Current Visit: No Status: Chronic Code(s): I50.9 - HEART FAILURE, UNSPECIFIED (4) Hx of aortic valve insufficiency Current Visit: No Status: Chronic Priority: High Code(s): Z86.79 - PERSONAL HISTORY OF OTHER DISEASES OF THE CIRCULATORY SYSTEM - Discharge Discharge Date: 01/21/19 Disposition: Home, Self-Care Condition: Stable Prescriptions: No Action diazePAM [Diazepam] 10 mg PO QHS Aspirin 325 mg PO HS Bumetanide [Bumex] 2 mg PO DAILY #30 tablet Metoprolol Tartrate 50 mg [Lopressor 50 MG] 50 mg PO BID #60 tablet Potassium Chloride 10 Meq Tab* [Klor Con 10 MEQ] 10 meq PO BID Tramadol HCl 50 mg [Ultram 50 mg] 50 mg PO HS Valsartan 160 mg PO HS Sertraline HCl 50 mg [Zoloft 50 mg Tablet] 50 mg PO DAILY [place]-3 Fatty Acids/Fish Oil [[place]-3 1,000 mg Softgel] 1 cap PO DAILY Hydrochlorothiazide 25 mg [hydroDIURIL 25 MG] 12.5 mg PO DAILY Instructions: Achalasia Follow up with: KAYLA ISLAS MD [Primary Care Provider] - 01/28/19 11:00 am
== END 2019-01-21 17:07 | disposition home or self-care (01) ==
LOC: ED 09:15 → MED SURG 13:10
PROVIDERS: ADMIT General Practice; ATTEND General Practice
DX: K22.0 Achalasia of cardia (principal); R07.9 Chest pain, unspecified; I50.9 Heart failure, unspecified; I10 Essential (primary) hypertension; I35.0 Nonrheumatic aortic (valve) stenosis; Z86.79 Personal history of other diseases of the circulatory system; Z79.899 Other long term (current) drug therapy
CPT/HCPCS: 36000; 36415; 71045; 71270; 74178; 74220; 80053; 82150; 82947; 82962; 83036; 83690; 83880; 84484; 85025; 93005; 93268; 94762; 96374; 96375; 99284; 99285; J2405; A9270-GY; G0378

== ENCOUNTER 2019-03-11 11:52 | Observation (INO) | payer MEDICARE ==
--- NOTE | 2019-03-11 12:13 | ERPHSYRPT ---
- History of Present Illness Time Seen by Provider: 03/11/19 12:13 Source: patient, EMS Exam Limitations: no limitations Physician History: 88 y/o white female presents with pain in the coccyx area after a fall 3 weeks ago. she does not recall how she fell. she usually walks fine with a walker. pt states 2 weeks ago she does not recall much of. she denies ever hitting her head. since thursday this week, pt is feeling very weak and cannot ambulate well even with her walker. pt denies cp. she is mildly soa when attempting to ambulate. she denies abd pain. daughter called into ED, she gave a history over last weeks, family notices more frequent intermittent periods of lucidity and confusion Timing/Duration: week(s) (3) Severity: mild Modifying Factors: Improves With: cold therapy Associated Symptoms: shortness of breath (mild), weakness Allergies/Adverse Reactions: Sulfa (Sulfonamide Antibiotics) Allergy (Verified 01/01/17 17:58) rash Home Medications: Aspirin 325 mg PO HS 04/15/15 [History] diazePAM [Diazepam] 10 mg PO QHS 04/15/15 [History] Hydrochlorothiazide 25 mg [hydroDIURIL 25 MG] 12.5 mg PO DAILY 01/20/19 [ History] [place]-3 Fatty Acids/Fish Oil [[place]-3 1,000 mg Softgel] 1 cap PO DAILY 01/20/19 [History] Potassium Chloride 10 Meq Tab* [Klor Con 10 MEQ] 10 meq PO BID 01/20/19 [ History] Sertraline HCl 50 mg [Zoloft 50 mg Tablet] 50 mg PO DAILY 01/20/19 [History] Tramadol HCl 50 mg [Ultram 50 mg] 50 mg PO HS 01/20/19 [History] Valsartan 160 mg PO HS 01/20/19 [History] Hx Tetanus, Diphtheria Vaccination/Date Given: No Hx Influenza Vaccination/Date Given: No Hx Pneumococcal Vaccination/Date Given: No - Review of Systems Constitutional: Weakness Eyes: No Symptoms Ears, Nose, & Throat: No Symptoms Respiratory: No Symptoms Cardiac: No Symptoms, No Chest Pain Abdominal/Gastrointestinal: No Symptoms Genitourinary Symptoms: No Symptoms Musculoskeletal: No Symptoms Skin: No Symptoms Neurological: No Symptoms Psychological: No Symptoms Endocrine: No Symptoms Hematologic/Lymphatic: No Symptoms Immunological/Allergic: No Symptoms All Other Systems: Reviewed and Negative - Past Medical History Pertinent Past Medical History: Yes Neurological History: No Pertinent History ENT History: Cataracts Cardiac History: Congestive Heart Failure, High Cholesterol, Hypertension, Other Respiratory History: CHF Endocrine Medical History: No Pertinent History Musculoskeletal History: Arthritis GI Medical History: No Pertinent History History: No Pertinent History Psycho-Social History: No Pertinent History Female Reproductive Disorders: No Pertinent History Other Medical History: anemia - Past Surgical History Past Surgical History: Yes Neuro Surgical History: No Pertinent History Cardiac: CABG Respiratory: No Pertinent History Gastrointestinal: Appendectomy Genitourinary: No Pertinent History Musculoskeletal: No Pertinent History Female Surgical History: Hysterectomy - Social History Smoking Status: Former smoker Exposure to second hand smoke: Yes Drug Use: none Patient Lives Alone: No - Nursing Vital Signs Nursing Vital Signs: Initial Vital Signs Temperature 97.5 F 03/11/19 11:52 Pulse Rate 104 H 03/11/19 11:52 Respiratory Rate 18 03/11/19 11:52 Blood Pressure 145/90 03/11/19 11:52 O2 Sat by Pulse Oximetry 95 03/11/19 11:52 Pain Scale Pain Intensity 0 - Physical Exam General Appearance: no apparent distress, alert, anxiety Eye Exam: PERRL/EOMI, eyes nml inspection Ears, Nose, Throat Exam: normal ENT inspection, dry mucous membranes Neck Exam: normal inspection, non-tender, supple, full range of motion Respiratory Exam: normal breath sounds, lungs clear, airway intact, No chest tenderness, No respiratory distress Cardiovascular Exam: regular rate/rhythm, normal heart sounds, normal peripheral pulses Gastrointestinal/Abdomen Exam: soft, normal bowel sounds, No tenderness Pelvic Exam: not done Rectal Exam: not done Back Exam: normal inspection, normal range of motion, No CVA tenderness, No vertebral tenderness Extremity Exam: normal inspection, normal range of motion, pelvis stable Neurologic Exam: alert, oriented x 3, cooperative, english as a second language teacher II-XII nml as tested Skin Exam: normal color, warm, dry Lymphatic Exam: No adenopathy SpO2 Interpretation: normal SpO2: 95 O2 Delivery: Room Air - Course Nursing assessment & vital signs reviewed: Yes EKG Interpreted by Me: RATE (98), Sinus Rhythm, NORMAL AXIS, NORMAL INTERVALS, NORMAL QRS, Other (no change from comparison ekg dated 01/20/19) Ordered Tests: Active Orders 24 hr Category Date Time Status EKG-ER Only STAT Care 03/11/19 12:13 Active IV Insertion STAT Care 03/11/19 12:13 Active Pulse Oximetry (ED) STAT Care 03/11/19 12:13 Active HEAD WITHOUT CONTRAST [CT] Stat Exams 03/11/19 12:46 Completed PELVIS (1 OR 2 VIEWS) Stat Exams 03/11/19 12:48 Completed SACRUM AND COCCYX Stat Exams 03/11/19 13:45 Completed CBC W DIFF Stat Lab 03/11/19 12:30 Completed CMP Stat Lab 03/11/19 12:30 Completed CULTURE,URINE Stat Lab 03/11/19 14:15 Received TROPONIN Q3H Lab 03/11/19 12:30 Completed TROPONIN Q3H Lab 03/11/19 15:15 Ordered TROPONIN Q3H Lab 03/11/19 18:15 Ordered TROPONIN Q3H Lab 03/11/19 21:15 Ordered UA W/RFX UR CULTURE Stat Lab 03/11/19 14:15 Completed Transfer Order Routine Transfer 03/11/19 Ordered Medication Summary Generic Name Dose Route Start Last Admin Trade Name Freq PRN Reason Stop Dose Admin Potassium Chloride/Sodium Chloride 1,000 mls @ 100 mls/hr 03/11/19 13:45 08/18 14:00 Sodium Chloride 0.9% W/ 20 Meq Kcl/Liter IV 04/10/19 13:44 100 mls/hr .Q10H MARCELLUS Administration Lab/Rad Data: Laboratory Result Diagrams 03/11/19 12:30 03/11/19 12:30 Laboratory Results 03/11/19 03/11/19 03/11/19 Range/Units 14:15 12:30 12:30 WBC (4.0-10.5) K/mm3 RBC (4.1-5.4) M/mm3 Hgb (12.0-16.0) gm/dl Hct (35-47) % MCV (78-100) fl MCH (26-32) pg MCHC (32-36) g/dl RDW (11.5-14.0) % Plt Count (150-450) K/mm3 MPV (6-9.5) fl Gran % (36.0-66.0) % Eos # (Auto) (0-0.5) Absolute Lymphs (auto) (1.0-4.6) Absolute Monos (auto) (0.0-1.3) Lymphocytes % (24.0-44.0) % Monocytes % (0.0-12.0) % Eosinophils % (0.00-5.0) % Basophils % (0.0-0.4) % Absolute Granulocytes (1.4-6.9) Basophils # (0-0.4) Sodium 140 (137-145) mmol/L Potassium 3.1 L (3.5-5.1) mmol/L Chloride 93 L (98-107) mmol/L Carbon Dioxide 38 H (22-30) mmol/L Anion Gap 12 (5-15) MEQ/L BUN 52 H (7-17) mg/dL Creatinine 0.91 (0.52-1.04) mg/dL Estimated GFR > 60.0 ML/MIN Glucose 158 H (74-106) mg/dL Calcium 9.3 (8.4-10.2) mg/dL Total Bilirubin 1.80 H (0.2-1.3) mg/dL AST 54 H (14-36) U/L ALT 30 (0-35) U/L Alkaline Phosphatase 98 (38-126) U/L Troponin I 1.710 H* (0.000-0.034) ng/mL Serum Total Protein 7.0 (6.3-8.2) g/dL Albumin 3.7 (3.5-5.0) g/dL Urine Color DARK YELLOW (YELLOW) Urine Appearance SLIGHTLY CLOUDY (CLEAR) Urine pH 5.0 (5-6) Ur Specific [place] 1.017 (1.005-1.025) Urine Protein 100 (Negative) Urine Ketones NEGATIVE (NEGATIVE) Urine Blood SMALL (0-5) Ryan/ul Urine Nitrite NEGATIVE (NEGATIVE) Urine Bilirubin NEGATIVE (NEGATIVE) Urine Urobilinogen 2 (0-1) mg/dL Ur Leukocyte Esterase NEGATIVE (NEGATIVE) Urine WBC (Auto) 0-2 (0-5) /HPF Urine RBC (Auto) 0-2 (0-2) /HPF U Hyaline Cast (Auto) 3-5 (0-2) /LPF U Epithel Cells (Auto) NONE (FEW) /HPF Urine Bacteria (Auto) RARE (NEGATIVE) /HPF Other Casts (Auto) NEGATIVE (NEGATIVE) /LPF Urine Mucus (Auto) SLIGHT (NEGATIVE) /HPF Urine Culture Reflexed YES (NO) Urine Glucose NEGATIVE (NEGATIVE) mg/dL Slides for Path Review 03/11/19 Range/Units 12:30 WBC 6.9 (4.0-10.5) K/mm3 RBC 4.39 (4.1-5.4) M/mm3 Hgb 13.3 (12.0-16.0) gm/dl Hct 40.9 (35-47) % MCV 93.2 (78-100) fl MCH 30.3 (26-32) pg MCHC 32.5 (32-36) g/dl RDW 15.8 H (11.5-14.0) % Plt Count 184 (150-450) K/mm3 MPV 11.2 H (6-9.5) fl Gran % 81.8 H (36.0-66.0) % Eos # (Auto) 0 (0-0.5) Absolute Lymphs (auto) 0.56 L (1.0-4.6) Absolute Monos (auto) 0.70 (0.0-1.3) Lymphocytes % 8.1 L (24.0-44.0) % Monocytes % 10.1 (0.0-12.0) % Eosinophils % 0.0 (0.00-5.0) % Basophils % 0.0 (0.0-0.4) % Absolute Granulocytes 5.64 (1.4-6.9) Basophils # 0 (0-0.4) Sodium (137-145) mmol/L Potassium (3.5-5.1) mmol/L Chloride (98-107) mmol/L Carbon Dioxide (22-30) mmol/L Anion Gap (5-15) MEQ/L BUN (7-17) mg/dL Creatinine (0.52-1.04) mg/dL Estimated GFR ML/MIN Glucose (74-106) mg/dL Calcium (8.4-10.2) mg/dL Total Bilirubin (0.2-1.3) mg/dL AST (14-36) U/L ALT (0-35) U/L Alkaline Phosphatase (38-126) U/L Troponin I (0.000-0.034) ng/mL Serum Total Protein (6.3-8.2) g/dL Albumin (3.5-5.0) g/dL Urine Color (YELLOW) Urine Appearance (CLEAR) Urine pH (5-6) Ur Specific [place] (1.005-1.025) Urine Protein (Negative) Urine Ketones (NEGATIVE) Urine Blood (0-5) Ryan/ul Urine Nitrite (NEGATIVE) Urine Bilirubin (NEGATIVE) Urine Urobilinogen (0-1) mg/dL Ur Leukocyte Esterase (NEGATIVE) Urine WBC (Auto) (0-5) /HPF Urine RBC (Auto) (0-2) /HPF U Hyaline Cast (Auto) (0-2) /LPF U Epithel Cells (Auto) (FEW) /HPF Urine Bacteria (Auto) (NEGATIVE) /HPF Other Casts (Auto) (NEGATIVE) /LPF Urine Mucus (Auto) (NEGATIVE) /HPF Urine Culture Reflexed (NO) Urine Glucose (NEGATIVE) mg/dL Slides for Path Review YES - Progress Progress Note: 03/11/19 13:51 repeat ekg at 1346 hr [address] elevation v4 resolved when compared to the earlier ekg from today. no other changes. 03/11/19 15:16 pt currently denies cp. spoke with dr. islas, pts pcp. he accepts pt for placement in observation for medical management. he states pt has sig cardiac and aortic valve hx. he stated pt is aware of these issues and has not wanted to have repaired or further management. Discussed with : Bailee Counseled pt/family regarding: lab results, diagnosis, rad results - Departure Departure Disposition: Observation Clinical Impression: Weakness, Sacral fracture, closed, Elevated troponin Condition: Stable Critical Care Time: Yes Critical Care Time(excluding separately billable procedures): 30-74 minutes Referrals: KAYLA ISLAS MD [Primary Care Provider] -
[2019-03-11 12:37] LABS: Basophil (Absolute #) 0 (0-0.4); Eosinophil (Absolute #) 0 (0-0.5); Granulocyte Absolute (ANC) 5.64 (1.4-6.9); Granulocytes % 81.8 % (36.0-66.0); Hematocrit 40.9 % (35-47); Hemoglobin 13.3 gm/dl (12.0-16.0); Lymphocyte (Absolute #) 0.56 (1.0-4.6); Lymphocytes % 8.1 % (24.0-44.0); Mean Cell Volume 93.2 fl (78-100); Mean Corpuscular Hemoglobin 30.3 pg (26-32); Mean Corpuscular Hgb Concent. 32.5 g/dl (32-36); Mean Platelet Volume 11.2 fl (6-9.5); Monocytes % 10.1 % (0.0-12.0); Platelet Count 184 K/mm3 (150-450); Red Blood Count 4.39 M/mm3 (4.1-5.4); Red Cell Distribution Width 15.8 % (11.5-14.0); White Blood Count 6.9 K/mm3 (4.0-10.5)
[2019-03-11 13:02] LABS: ALBUMIN 3.7 g/dL (3.5-5.0); ALKALINE PHOSPHATASE 98 U/L (38-126); BLOOD UREA NITROGEN 52 mg/dL (7-17); CHLORIDE 93 mmol/L (98-107); Calcium 9.3 mg/dL (8.4-10.2); Creatinine 1 0.91 mg/dL (0.52-1.04); Glucose 158 mg/dL (74-106); Potassium 3.1 mmol/L (3.5-5.1); SGOT/AST 54 U/L (14-36); SGPT/ALT 30 U/L (0-35); SODIUM 140 mmol/L (137-145)
[2019-03-11 13:10] LABS: Carbon Dioxide 38 mmol/L (22-30)
[2019-03-11 13:20] LABS: ANION GAP 12 MEQ/L (5-15)
--- NOTE | 2019-03-11 13:40 | XRAY ---
Indication: Mental status change. Weakness. Multiple contiguous axial images obtained through the head without contrast. Comparison: None Age-appropriate global atrophy. No acute intracranial hemorrhage, abnormal extra-axial fluid collection, or mass effect. Fourth ventricle is midline without hydrocephalus. Araujo-white matter differentiation preserved. Bony calvarium intact. Visualized paranasal sinuses and mastoid air cells are clear. Impression: Normal aging brain. No acute intracranial abnormalities. CTDI 70.21
--- NOTE | 2019-03-11 13:54 | XRAY ---
Indication: Pain following fall 2-3 weeks ago. Comparison: None Single AP pelvis osteopenia, lower lumbar degenerative spondylosis/levorotoscoliosis, scattered vascular calcifications, and proximal left thigh vascular clips. No other bony, articular, or soft tissue abnormalities.
--- NOTE | 2019-03-11 13:59 | XRAY ---
Indication: Pain following fall 2-3 weeks ago. Comparison: None 3 views of the sacrum/coccyx demonstrates minimally displaced non-angulated distal sacral fracture. Elsewhere osteopenia, scattered vascular calcifications, and proximal left thigh vascular clips. No other bony, articular, or soft tissue abnormalities.
[2019-03-11] MEDS: Sodium Chloride 0.9% W/ 20 mEq KCl/LITER 1,000 ML IV SCH (14:00)
[2019-03-11 14:46] LABS: Appearance SLIGHTLY CLOUDY (CLEAR); Bacteria RARE /HPF (NEGATIVE); Bilirubin NEGATIVE (NEGATIVE); Blood SMALL Ery/ul (0-5); Glucose NEGATIVE (NEGATIVE); Ketones NEGATIVE (NEGATIVE); Leukocyte Esterase NEGATIVE (NEGATIVE); Mucus SLIGHT /HPF (NEGATIVE); Nitrite NEGATIVE (NEGATIVE); Protein,Urine Dip 100 (Negative); RBC 0-2 /HPF (0-2); Specific Gravity 1.017 (1.005-1.025); Urobilinogen 2 mg/dL (0-1); WBC 0-2 /HPF (0-5)
[2019-03-11] MEDS ORDERED: Zofran 4 MG/2 ML VIAL IV PRN (15:57)
[2019-03-11] MEDS ORDERED: TYLENOL 325 MG PO PRN (15:57)
[2019-03-11] MEDS ORDERED: ULTRAM 50 MG PO PRN (17:02)
[2019-03-11] MEDS: Valium 5 MG PO SCH (20:57)
[2019-03-11] MEDS: Ecotrin 325 MG PO SCH (20:57)
[2019-03-11] MEDS: Lopressor 50 MG PO SCH (20:58)
[2019-03-11] MEDS: Klor Con 10 MEQ PO SCH (20:58)
[2019-03-11] MEDS ORDERED: DIOVAN 80 MG PO SCH (22:00)
[2019-03-11] MEDS ORDERED: VALSARTAN 160 MG PO SCH (22:00)
[2019-03-11] MEDS ORDERED: DIAZEPAM 5 MG PO SCH (22:00)
[2019-03-12] MEDS: Sodium Chloride 0.9% W/ 20 mEq KCl/LITER 1,000 ML IV SCH ×2 (02:41→16:04)
[2019-03-12] MEDS ORDERED: FISH OIL PO SCH (10:00)
[2019-03-12] MEDS ORDERED: NON-FORMULARY ITEM (Bumetanide [Bumex] 2 MG) PO SCH (10:00)
[2019-03-12] MEDS ORDERED: OMEGA PO SCH (10:00)
[2019-03-12] MEDS ORDERED: FATTY ACIDS PO SCH (10:00)
[2019-03-12] MEDS: BUMEX 1 MG PO SCH (10:25)
[2019-03-12] MEDS: Klor Con 10 MEQ PO SCH ×2 (10:25→21:43)
[2019-03-12] MEDS: FISH OIL 1,000 MG CAPSULE PO SCH (10:25)
[2019-03-12] MEDS: Lopressor 50 MG PO SCH ×2 (10:26→21:43)
[2019-03-12] MEDS ORDERED: DIOVAN 80 MG PO SCH (11:20)
[2019-03-12 12:37] LABS: ALBUMIN 3.8 g/dL (3.5-5.0); ALKALINE PHOSPHATASE 95 U/L (38-126); ANION GAP 11.3 MEQ/L (5-15); BLOOD UREA NITROGEN 50 mg/dL (7-17); CHLORIDE 98 mmol/L (98-107); Carbon Dioxide 35 mmol/L (22-30); Creatinine 1 0.84 mg/dL (0.52-1.04); Glucose 105 mg/dL (74-106); Potassium 4.4 mmol/L (3.5-5.1); SGOT/AST 50 U/L (14-36); SGPT/ALT 31 U/L (0-35); SODIUM 140 mmol/L (137-145); Total Protein 7.3 g/dL (6.3-8.2)
[2019-03-12] MEDS: Ecotrin 325 MG PO SCH (22:28)
[2019-03-12] MEDS: Valium 5 MG PO SCH (22:28)
[2019-03-13] MEDS: BUMEX 1 MG PO SCH (09:59)
[2019-03-13] MEDS: Klor Con 10 MEQ PO SCH (09:59)
[2019-03-13] MEDS: Lopressor 50 MG PO SCH (09:59)
[2019-03-13] MEDS: FISH OIL 1,000 MG CAPSULE PO SCH (09:59)
--- NOTE | 2019-03-13 12:57 | PCM.NOTE ---
Date and Time: 03/13/19 1255 Subjective Assessment: Patient denies any concerns today; she states she got cold when PT used an ice pack on her saccrum. - Review of Systems Constitutional: No Symptoms Eyes: No Symptoms Ears, Nose, & Throat: No Symptoms Respiratory: No Symptoms Cardiac: No Symptoms Abdominal/Gastrointestinal: No Symptoms Genitourinary Symptoms: No Symptoms Objective Exam General Appearance: no apparent distress Neurologic Exam: alert, cooperative, normal mood/affect Skin Exam: normal color, warm, dry, No rash Respiratory Exam: normal breath sounds, lungs clear, No crackles/rales, No rhonchi, No wheezing Cardiovascular Exam: regular rate/rhythm, No murmur, No friction rub, No gallop Gastrointestinal/Abdomen Exam: soft, normal bowel sounds, No tenderness, No distention, No mass Extremity Exam: normal inspection OBJECTIVE DATA Vital Signs: Vital Signs - 24 hr Temp Pulse Resp BP Pulse Ox 03/13/19 09:27 100 03/13/19 08:00 97.5 F 63 16 143/58 100 03/13/19 04:00 97.9 F 65 17 107/55 98 03/13/19 00:00 98.1 F 66 21 93/52 100 03/12/19 20:21 98 03/12/19 20:00 97.9 F 80 20 134/60 100 03/12/19 16:00 98.6 F 74 16 106/63 95 Oxygen-Last 24 hours O2 Percentage 3 Liters = 32% O2 Percentage 3 Liters = 32% O2 Percentage 3 Liters = 32% O2 Percentage 3 Liters = 32% Pain Assessment - Last Documented Pain Intensity 0 Pain Scale Used 0-10 Pain Scale Intake and Output: Intake & Output 03/11/19 03/12/19 03/13/19 03/14/19 06:59 06:59 06:59 06:59 Intake Total 1254 2447 240 Output Total 350 Balance 1254 2097 240 Weight 43.4 kg 45.7 kg Lab Results: Lab Results-Last 24 Hours 03/12/19 03/12/19 Range/Units 12:10 12:10 Sodium 140 (137-145) mmol/L Potassium 4.4 D (3.5-5.1) mmol/L Chloride 98 (98-107) mmol/L Carbon Dioxide 35 H (22-30) mmol/L Anion Gap 11.3 (5-15) MEQ/L BUN 50 H (7-17) mg/dL Creatinine 0.84 (0.52-1.04) mg/dL Estimated GFR > 60.0 ML/MIN Glucose 105 (74-106) mg/dL Calcium 9.0 (8.4-10.2) mg/dL Magnesium 2.2 (1.6-2.3) mg/dL Total Bilirubin 1.40 H (0.2-1.3) mg/dL AST 50 H (14-36) U/L ALT 31 (0-35) U/L Alkaline Phosphatase 95 (38-126) U/L Serum Total Protein 7.3 (6.3-8.2) g/dL Albumin 3.8 (3.5-5.0) g/dL Radiology Exams: Radiology Procedures Category Date Time Status HEAD WITHOUT CONTRAST [CT] Stat Exams 03/11/19 12:46 Completed PELVIS (1 OR 2 VIEWS) Stat Exams 03/11/19 12:48 Completed SACRUM AND COCCYX Stat Exams 03/11/19 13:45 Completed Multi-Disciplinary Progress Notes: Multi-Disciplinary Progress Notes 03/13/19 11:05 Case Management Note by Shelby Higgins DISCUSSION WITH DEANDRE, PT'S DAUGHTER, AND LAY CAREGIVER. DISCUSSED WITH DEANDRE, WHAT PT HAS REPORTED TO NURSING STAFF. DEANDRE REPORTS THAT THERE IS NO PHYSICAL ABUSE GOING ON IN THE HOME, DESCRIBES HER PARENTS RELATIONSHIP 60 YEARS OF BICKERING. REPORTS THAT SINCE HER MOTHER HAS BEEN HAVING "THESE DELUSIONS" SHE HAS BEEN SAYING THAT SHE DOES NOT WANT TO RETURN HOME. DISCUSSED WITH PT WHAT SHE WOULD LIKE WHEN READY FOR DISCHARGE, PT REPLIES "[facility]." DISCUSSED HER INSURANCE, AND THAT IT WOULD REQUIRE PRECERT FOR HER TO GO TO THE ALF FOR A REHAB STAY. REQUESTS THAT CASE MANAGEMENT CALLS THE ALF TO FIND OUT WHO IS IN NETWORK WITH HER INSURANCE, AND TRY TO PRECERT A ALF REHAB STAY. REPORTS THAT SHE IS HAVING A DIFFICULT TIME WALKING, SHE HAS BEEN USING THE WALKER, BUT STILL IS UNSTEADY ON HER FEET. REPORTS THAT NORMALLY SHE IS COMPLETELY INDEPENDENT WITH ALL ADL'S, AND USES A CANE FOR AMBULATIOIN. ALSO, REPORTS THAT SHE USES HOME OXYGEN 24/. DISCUSSED THIS WITH DAUGHTER, DEANDRE, AND SHE ALSO, FEELS THAT PT WOULD BENEFIT FROM [facility] SKILLED STAY, SHORT TERM ON DISCHARGE FROM HOSPITAL. ALSO, CONFIRMS THAT THEY WILL NEED TO STAY IN NETWORK, BECAUSE THEY COULD NOT PAY ANY EXTRA OUT OF POCKET. ALSO, REPORTS THAT THEY ARE INTERESTED IN [facility] FOLLOWING ON DISCHARGE FROM REHAB, OR ON DISCHARGE FROM HOSPITAL IF PT'S INSURANCE DENIES THE NEED FOR REHAB STAY. DISCUSSED WITH PT/ DAUGHTER THAT HER INSURANCE IS CLOSED TODAY, BUT CALLS WOULD BE MADE FIRST THING IN THE MORNING, AND WILL KEEP THEM UPDATED. ALL IN AGREEMENT TO THIS PLAN. Initialized on 03/13/19 11:05 - END OF NOTE Assessment/Plan (1) Altered mental status Current Visit: Yes Status: Acute Assessment & Plan: Seems improved today. Code(s): R41.82 - ALTERED MENTAL STATUS, UNSPECIFIED (2) Sacral fracture, closed Current Visit: Yes Status: Acute Assessment & Plan: PT consulted. Code(s): S32.10XA - UNSP FRACTURE OF SACRUM, INIT ENCNTR FOR CLOSED FRACTURE (3) Coronary artery disease Current Visit: Yes Status: Acute Assessment & Plan: Troponins were elevated on admission and patient does not want any intervention for this. Code(s): I25.10 - ATHSCL HEART DISEASE OF [place] CORONARY ARTERY W/O ANG PCTRS
[2019-03-13] MEDS: Sodium Chloride 0.9% W/ 20 mEq KCl/LITER 1,000 ML IV SCH (14:04)
[2019-03-13] MEDS ORDERED: Sodium Chloride 0.9% 250 ML 250 ML IV ONE (20:07)
[2019-03-13] MEDS ORDERED: Sodium Chloride 0.9% 250 ML 250 ML IV SCH (20:15)
[2019-03-13 20:19] VITALS: BP 78/48; PULSE 64; O2SAT 92
--- NOTE | 2019-03-14 12:22 | HP ---
HISTORY OF PRESENT ILLNESS: This is an 88 year-old patient of Dr. Morocho'charissa who was admitted through the emergency department and he reported the patient had called in and stated she was having trouble home but that her would not bring her to the hospital so Dr. Morocho instructed her to call 911 and the ambulance brought her to the emergency department. The patient reports she has been semi-conscious for the past two to three weeks and had been lying on her bed. She reports she has a daughter that lives locally and one that lives in [place]. The patient also reports she has not been getting along with her very well. The patient reports a history of coronary artery disease and has seen Dr. Massey in the past. She reports that she did not want any further interventions done for any heart problems at this time. The patient reports she did have some nausea at home when taking her pills and also vomiting at home. She reports she cuts up her own pills. REVIEW OF SYSTEMS: The patient denies any chest pain, no dyspnea although she does wear home oxygen. She reports some lower extremity edema and lightheadedness if she gets up quickly. She reports that people think that she is not thinking straight. She reports that her is watching a child who is on television, this is very vague when she tries to describe this. MEDICATIONS: Please see the home medication reconciliation form. ALLERGIES: SULFA. PAST MEDICAL HISTORY: Coronary artery disease. Hypoxia requiring oxygen. PAST SURGICAL HISTORY: Hysterectomy. SOCIAL HISTORY: She denies any alcohol or tobacco use although she reports she had secondhand smoke exposure. FAMILY HISTORY: Her mother had congestive heart failure. She does not know what her father from. PHYSICAL EXAMINATION: VITAL SIGNS: Temperature current 97.5F, heart rate 83, respiratory rate 20, blood pressure 104/64. Oxygen saturation 96% on 3 liters nasal cannula. GENERAL: The patient is a pleasant lady lying in bed in no acute distress. She reports the year is 2008 and the President of [employer] is Lakhwinder Rudolph. She is oriented to person and place. She is thin and cachectic. CVS: She has a 4/6 systolic ejection murmur and wheeze sound coming from her right sternal border. No murmurs, gallops or rubs. CHEST: Clear to auscultation bilaterally. No crackles or wheezes. ABDOMEN: Soft, nontender, nondistended. EXTREMITIES: No clubbing, cyanosis or edema. SKIN: Warm, dry and intact. LABORATORY DATA AND TESTS: She had elevated troponins. Her highest 1.78 and has been fairly unchanged in a series of three. Hemoglobin 13.3. Potassium 4.4, creatinine 0.84, bilirubin 1.4. AST 50. UA 0-[address] normal aging brain. Please see the radiologist dictation for the full report. Pelvic x-ray with lower lumbar degenerative spondylosis. Please see the radiologist dictation for the full report. Sacrum and coccyx x-ray she had a minimally displaced non-angulated distal sacral fracture. ASSESSMENT AND PLAN: 1) ALTERED MENTAL STATUS: There may be some underlying dementia. Will continue with gentle fluids. Will ask discharge planning to see the patient. 2) SACRAL FRACTURE: Continue with pain control as needed. 3) CORONARY ARTERY DISEASE: The patient does not want to have any further intervention, will continue with aspirin daily. She is also on Valsartan. 4) ELEVATED TROPONINS: Could possibly had been non-ST elevation myocardial infarction. Again, the patient did not wish for further evaluation or treatment for this. Her asp net c developer that she sees as an outpatient is Dr. Massey. Her primary care doctor was aware of her elevated troponins and she was made an admission from the emergency department to the floor. 5) CODE STATUS: The patient does not want to have any chest compressions or be placed on a ventilator if her heart would stop beating or if she would stop breathing.
== END 2019-03-13 22:35 | disposition expired ==
LOC: ED 11:52 → MED SURG 15:50
PROVIDERS: ADMIT General Practice; ATTEND General Practice
DX: R41.82 Altered mental status, unspecified (principal); S32.10XA Unspecified fracture of sacrum, initial encounter for closed fracture; R79.89 Other specified abnormal findings of blood chemistry; R09.02 Hypoxemia; I25.10 Atherosclerotic heart disease of native coronary artery without angina pectoris; Z99.81 Dependence on supplemental oxygen; M47.816 Spondylosis without myelopathy or radiculopathy, lumbar region
CPT/HCPCS: 36000; 36415; 70450; 72170; 72220; 80053; 81001; 83735; 84484; 85025; 87086; 93005; 94760; 97161; 99284; P9612; 93268; 96360; 96361; 99285; 99291; J2405; A9270-GY; G0378